=== PATIENT | female | born 2000 ===

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

== ENCOUNTER 2021-01-03 01:36 | Emergency (ER) | payer MEDICAID, SELFPAY ==
[2021-01-03 02:16] VITALS: BP 127/80; PULSE 82; RESP 16; TEMP 36.6; O2SAT 98; BMI 33.6
[2021-01-03 02:19] VITALS: BP 113/72; PULSE 73; RESP 18; TEMP 36.1; O2SAT 97; BMI 33.6
[2021-01-03 02:21] VITALS: BP 113/72; PULSE 73; RESP 18; TEMP 36.1; O2SAT 97
--- NOTE | 2021-01-03 05:25 | ED.EAR ---
HPI - Ear Problem General Chief complaint: Ear Problems Stated complaint: ear pain Time Seen by Provider: 01/03/21 05:17 Source: patient Mode of arrival: ambulatory Limitations: no limitations History of Present Illness MD Complaint: ear pain Location: left ear Duration: constant Severity: severe Relieving factors: nothing Exacerbating factors: nothing Discharge from ear: no Associated symptoms ear: external ear tenderness Treatment prior to arrival: oral analgesic Related Data Previous Rx's Medication Instructions Recorded uprdnhxw-ojbphhstp-ndmnegine 3.5 4 drp OTIC (EAR) LEFT TID 10 Days 01/03/21 mg-10,000 unit/mL-1 % ear #10 ml drops,susp Allergies Allergy/AdvReac Type Severity Reaction Status Date / Time No Known Allergies Allergy Verified 01/03/21 02:22 Review of Systems Review of Systems: Yes all other systems are reviewed and are negative [facility] Past Medical History [facility] Narrative: Past medical history: None. Past surgical history: None. Social history: She denies tobacco, alcohol and drug use. Social History Social History Alcohol intake: never Patient Tobacco Use Status: Never used Tobacco Use of substances other than those prescribed or required for medical reasons: No Advance Directives: No Advance Directives Information Provided: Yes Patient : No Physical Exam Vital Signs: Vital Signs: Last Vital Signs Temp 97 F 01/03/21 02:21 Pulse 73 01/03/21 02:21 Resp 18 01/03/21 02:21 BP 113/72 01/03/21 02:21 Pulse Ox 97 01/03/21 02:21 Body Mass Index 33.6 Const: General: cooperative, healthy appearing and no acute distress Nutritional Appearance: average body habitus Orientation/consciousness: oriented to person HENMT: Head: Yes normal to inspection Ears: TM's normal bilaterally and external ear abnormal (Left severe tenderness with palpation of tragus) General nose exam: Normal external nose present Face and sinus: Yes normal facial exam Mouth: Normal oral and palatal mucosa present Throat: Yes posterior oropharynx normal Eyes: General: appearance normal, both eyes and all related structures Neck: Neck: Yes normal visual inspection, Yes no lymphadenopathy, Yes trachea midline and Yes supple Chest: Chest palpation & inspection: normal inspection of the chest and normal palpation of entire chest wall Resp: Effort & Inspection: normal respiratory effort and able to speak in complete sentences Cardio: Rhythm: regular rhythm Heart sounds: S1 normal heart sound present, S2 normal heart sound present and no murmurs GI: Inspection: Yes normal to inspection Palpation (GI): Soft to palpation, nontender and no guarding Skin: General skin exam: no rashes or lesions noted Neuro: General: oriented to person Extrem: General: Yes normal to inspection Psych: Appearance: grossly normal Course Course Course Narrative: 20-year-old female who presents emergency department for evaluation of left ear tenderness/pain with no other symptoms, x1 day. Exam is consistent with otitis externa. Patient was given ibuprofen 600 mg orally and oxycodone 5 mg orally for her pain. Patient will be started on Cortisporin drops x1 week, she was advised to take Tylenol ibuprofen for pain. She was discharged home. Discharge Plan Discharge Clinical Impression: Otitis externa Qualifiers: Otitis externa type: unspecified type Chronicity: acute Laterality: left Qualified Code(s): H60.502 - Unspecified acute noninfective otitis externa, left ear Patient Disposition: Home, Self-Care Additional Instructions: Your findings are consistent with an external ear infection. This is treated with ear drops and not oral antibiotics. Your ear drum looks normal. Take ibuprofen 200 mg pills, 3 pills every 6 hours as needed for pain. Take Tylenol (acetaminophen) 500 mg pills, 2 pills every 4 to 6 hours as needed for pain. Follow-up with your doctor in 2 days. Please return to the emergency department if your symptoms get worse or if you develop any symptoms that are concerning to you. Prescriptions: New mchfdyld-updjbncum-JQ 3.5-10,000-1 mg/mL-unit/mL-% drops,suspension 4 drp otic (ear) left TID 10 Days Qty: 10 RF: 0
[2021-01-03] MEDS: oxyCODONE HCl Immed Release 5 MG TABLET PO (05:37)
[2021-01-03] MEDS: Ibuprofen 600 MG TABLET PO (05:37)
[2021-01-03 05:38] VITALS: BP 136/80; PULSE 72; RESP 18; TEMP 36.6; O2SAT 99
--- NOTE | 2021-01-03 05:41 | PC.NURSE ---
Pt alert and oriented x4, calm and cooperative. Pt educated on dc meds. Pt agrees to dc. No IV in place, vitals stable.
== END 2021-01-03 05:42 | disposition home or self-care (01) ==
PROVIDERS: Emergency Provider Emergency Medicine Emergency Medical Services
DX: H60.502 Unspecified acute noninfective otitis externa, left ear (principal)
CPT/HCPCS: 99283; 99284

== ENCOUNTER 2021-01-03 16:38 | Emergency (ER) | payer MEDICAID, SELFPAY ==
[2021-01-03 18:34] VITALS: BP 125/64; PULSE 89; RESP 16; TEMP 36.6; O2SAT 100; BMI 31.8
[2021-01-03 20:41] VITALS: BP 113/76; PULSE 96; RESP 18; TEMP 36.6; O2SAT 98
--- NOTE | 2021-01-03 21:18 | ED_ITS ---
HPI - Ear Problem General Chief complaint: Ear Problems Stated complaint: Earache Source: patient Mode of arrival: ambulatory Limitations: no limitations History of Present Illness HPI Narrative: Patient presents to ED for left ear pain. Patient was seen here this morning for infection and was prescribed ear drops. Patient states she only took it once and still having pain. Patient denies any headache, swelling outside of ear, fever, chills, nausea, vomiting. Patient denies any head trauma. Related Data Previous Rx's Medication Instructions Recorded vsqvrbkc-luqcfjmds-cgwpzanty 3.5 4 drp OTIC (EAR) LEFT TID 10 Days 01/03/21 mg-10,000 unit/mL-1 % ear #10 ml drops,susp Allergies Allergy/AdvReac Type Severity Reaction Status Date / Time No Known Allergies Allergy Verified 01/03/21 02:22 Review of Systems Review of Systems: Yes all other systems are reviewed and are negative Constitutional: Constitutional: Reports as per HPI and Reports no additional constitutional complaints Eyes: Eyes: Reports as per HPI and Reports no additional eye complaints ENT: Reports system reviewed and no additional complaints, except as documented, Reports as per HPI, Reports ear discharge and Reports otalgia Cardiovascular: Cardiovascular: Reports as per HPI and Reports no additional cardiovascular complaints Respiratory: Respiratory: Reports as per HPI and Reports no additional respiratory complaints Gastrointestinal: Gastrointestinal: Reports as per HPI and Reports no additional gastrointestinal complaints Musculoskeletal: Musculoskeletal: Reports no additional musculoskeletal complaints and Reports as per HPI Neurologic: Reports system reviewed and no additional complaints, except as documented and Reports as per HPI Psychiatric: Psychiatric: Reports no additional psychiatric complaints and Reports as per HPI [facility] Social History Social History Alcohol intake: never Patient Tobacco Use Status: Never used Tobacco Advance Directives: No Patient : No Physical Exam Vital Signs: Vital Signs: Last Vital Signs Temp 97.9 F 01/03/21 20:41 Pulse 96 01/03/21 20:41 Resp 18 01/03/21 20:41 BP 113/76 01/03/21 20:41 Pulse Ox 98 01/03/21 20:41 Body Mass Index 31.8 Const: General: cooperative, healthy appearing, comfortable, no acute distress, well developed, alert, awake and Physically active Orientation/consciousness: patient oriented x3 HENMT: Ears: hearing grossly normal bilaterally, external ears normal, TM's normal bilaterally, TM normal on the right, mastoids normal, no periauricular adenopathy and Abnormal EAC present otic discharge (Yellow, left ear) Eyes: General: appearance normal, both eyes and all related structures Neck: Neck: Yes normal visual inspection, Yes full ROM, Yes no lymphadenopathy, Yes no meningeal signs, Yes trachea midline, Yes supple and No tender Chest: Chest palpation & inspection: normal inspection of the chest and normal palpation of entire chest wall Resp: Effort & Inspection: normal respiratory effort and able to speak in complete sentences Cardio: Jugular venous distension: no JVD Heart sounds: S1 normal heart sound present and S2 normal heart sound present GI: Inspection: Yes normal to inspection and No abdominal wall ecchymosis Palpation (GI): Soft to palpation, not firm, nontender, no guarding and not rigid : General: No CVA tenderness and Yes no CVA tenderness Back/Spine/Pelvis: Back: no CVA tenderness, No CVA tenderness and No back tenderness Skin: General skin exam: no rashes or lesions noted and elasticity normal Neuro: General: patient oriented x3, gait normal, no meningeal signs and CN's II-XI intact bilaterally Cranial nerves: Yes CN's II-XII intact bilaterally Extrem: General: Yes normal to inspection and Yes full ROM Psych: Appearance: grossly normal, well kempt and not disheveled Course Course Course Narrative: Physical exam indicate otitis externa. His exam does not indicate osteomyelitis or mastoiditis. Patient is safe for discharge Reevaluation(s) Reevaluation #1: Mother and patient educated educated on taking proper doses and uses of medication. They were reassured. They were informed to return to ED if any signs of osteo myelitis or mastoiditis. Patient with follow-up with PCP Time: 21:23 MDM - Ear MDM Narrative Medical decision making narrative: otitis externa Discharge Plan Discharge Clinical Impression: Otitis externa Patient Disposition: Home, Self-Care Instructions: Otitis Externa (ED) Additional Instructions: Continue taking medication that was prescribed this morning by previous ED provider. Return to the ED immediately for increased swelling/pain of ear, swelling behind ear, swelling in front of ear, redness, headache, dizziness, fever, chills, or any other concerning symptoms. Patient can take Tylenol/Motrin ayyj-dvs-wonmcgf for pain relief. Please follow-up with PCP Prescriptions: No Action sjwqmxkn-cyluwtwic-NL 3.5-10,000-1 mg/mL-unit/mL-% drops,suspension 4 drp otic (ear) left TID 10 Days Qty: 10 RF: 0 Stand Alone Forms: Work/School Release Print Language: Upper Sorbian
== END 2021-01-03 21:35 | disposition home or self-care (01) ==
PROVIDERS: Emergency Provider Internal Medicine; PCP Pediatrics
DX: H60.92 Unspecified otitis externa, left ear (principal)
CPT/HCPCS: 99283

== ENCOUNTER 2021-02-23 20:57 | Emergency (ER) | payer MEDICAID, SELFPAY ==
[2021-02-23 20:59] VITALS: BP 118/61; PULSE 90; RESP 18; TEMP 36.8; O2SAT 96; BMI 33.6
--- NOTE | 2021-02-23 21:25 | ED_ITS ---
HPI - Allergic Reaction General Chief complaint: Allergic Reaction Stated complaint: Allergic reaction Time Seen by Provider: 02/23/21 21:24 Source: patient Mode of arrival: ambulatory History of Present Illness HPI narrative: This is a 20-year-old female with history of asthma who presents heart with complaints of allergic reaction in after taking her 1st dose of Bactrim that she was prescribed for UTI by her PCP approximately 1 hour prior to arrival. Patient states her symptoms started with itching skin and then progressed to having itchiness around her right eye and then feeling as though her ?throat was closing?. In addition, patient states that she has been feeling nauseous with vomiting and diarrhea since approximately to a.m. this morning. Related Data Previous Rx's Medication Instructions Recorded xkbehwvp-zrxfngksx-inmwjqkqf 3.5 4 drp OTIC (EAR) LEFT TID 10 Days 01/03/21 mg-10,000 unit/mL-1 % ear #10 ml drops,susp ciprofloxacin HCl 250 mg tablet 250 mg PO Q12H 3 Days #6 tab 02/23/21 Allergies Allergy/AdvReac Type Severity Reaction Status Date / Time sulfamethoxazole AdvReac Difficulty Verified 02/23/21 21:06 [From Bactrim] Breathing trimethoprim [From Bactrim] AdvReac Difficulty Verified 02/23/21 21:06 Breathing Review of Systems Review of Systems: Pertinent positives and negatives as stated in the HPI 10 point review of systems is otherwise negative. PMFSH Past Medical History Source: nursing notes reviewed Social History Social History Alcohol intake: unknown Patient Tobacco Use Status: Never used Tobacco Use of substances other than those prescribed or required for medical reasons: Unknown Advance Directives: No Advance Directives Information Provided: No Patient : No Physical Exam Vital Signs: Vital Signs: Last Vital Signs Temp 98.3 F 02/23/21 20:59 Pulse 89 02/23/21 22:00 Resp 15 02/23/21 22:00 BP 126/76 02/23/21 22:00 Pulse Ox 100 02/23/21 22:00 Body Mass Index 33.6 VITAL SIGNS: Reviewed. GENERAL: Well developed, well nourished, in no acute distress. HEAD: Normocephalic/atraumatic EYES: PERRLA, EOMI, no noted lid swelling there is a mild conjunctival injection on the right eye NOSE: Nares patent bilateral, rhinorrhea OROPHARYNX: no oral lesions noted, posterior pharynx clear, no lip/tongue/facial swelling noted NECK: Supple, no adenopathy LUNGS: Normal breath sounds, no wheeze, no stridor, no adventitious sounds or accessory muscle use. SpO2<96> CARDIOVASCULAR: Regular rate and rhythm without noted murmurs ABDOMEN: Soft, non-tender, non-distended with bowel sounds. SKIN: Inspection of the skin reveals no rashes noted NEUROLOGIC: Alert and oriented x 4. Course Course Course Narrative: 20-year-old female with history and clinical presentation consistent with possible mild allergic reaction as there is no urticaria, angioedema, signs of anaphylaxis at this time. Patient will receive combination of Benadryl, Pepcid, Solu-Medrol as precaution and be provided with a different antibiotic. Reevaluation(s) Reevaluation #1: Reassessment patient is feeling much better, denies any further itching or feelings of shortness of breath and denies any difficulty with breathing. On clinical exam no evidence of anaphylaxis or angioedema as well as no evidence of urticaria at this time. Time: 22:22 Reevaluation #2: On reassessment patient is still doing well and discharged home in stable condition. Time: 23:39 Discharge Plan Discharge Clinical Impression: Allergic reaction, UTI (urinary tract infection) Patient Disposition: Home, Self-Care Instructions: Urinary Tract Infection in Women (ED), General Allergic Reaction (ED) Additional Instructions: 1. Do not take any more of the antibiotic that caused this allergic reaction. 2. You have been switched to a another antibiotic in you should proceed to the pharmacy and pick it up in the morning and complete the entire course. 3. Follow-up with your primary care provider in the next 2-3 days for re- evaluation. Continue to take Benadryl as directed on the outside packaging over the next 1-2 days. Return to the ER for worsening symptoms. Prescriptions: New ciprofloxacin HCl 250 mg tablet 250 mg PO Q12H 3 Days Qty: 6 RF: 0 No Action axhchwjk-utwnhevom-MO 3.5-10,000-1 mg/mL-unit/mL-% drops,suspension 4 drp otic (ear) left TID 10 Days Qty: 10 RF: 0 Referrals: Tracey Munoz MD [Primary Care Provider] - 2 days (Patient is allergic to Bactrim and was started on 3 day course of Cipro.)
[2021-02-23 22:00] VITALS: BP 126/76; PULSE 89; RESP 15; O2SAT 100
[2021-02-23] MEDS: diphenhydrAMINE HCL 50 MG/ML VIAL 25 MG IVPUSH (22:07)
[2021-02-23] MEDS: methylPREDNISolone Sod Succ 125 MG/2 ML VIAL IVPUSH (22:07)
[2021-02-23] MEDS: Famotidine/PF 20 MG/2 ML VIAL IVPUSH (22:07)
== END 2021-02-24 00:19 | disposition home or self-care (01) ==
PROVIDERS: Emergency Provider Student in an Organized Health Care Education/Training Program; PCP Pediatrics
DX: R21 Rash and other nonspecific skin eruption (principal); T36.8X5A Adverse effect of other systemic antibiotics, initial encounter; X58.XXXA Exposure to other specified factors, initial encounter; N39.0 Urinary tract infection, site not specified
CPT/HCPCS: 96374; 96375; 99284; 99285; J1200; J2930

== ENCOUNTER 2021-04-06 13:18 | Outpatient (REF) | payer MEDICAID, SELFPAY ==
[2021-04-06 14:57] LABS: Binax Internal Control QC Valid; Binax Now Covid-19 Ag Negative (Negative)
== END 2021-04-06 13:19 | disposition home or self-care (01) ==
LOC: HO.LAB 13:18
PROVIDERS: Visit Provider Internal Medicine
DX: Z20.822 Contact with and (suspected) exposure to COVID-19 (principal)
CPT/HCPCS: 36415; C9803

== ENCOUNTER 2021-07-03 02:02 | Emergency (ER) | payer MEDICAID, SELFPAY ==
[2021-07-03 03:05] VITALS: BP 119/81; PULSE 75; RESP 18; TEMP 36.6; O2SAT 100; BMI 33.6
== END 2021-07-03 04:54 | disposition left against medical advice (07) ==
PROVIDERS: Emergency Provider Emergency Medicine
DX: R51.9 Headache, unspecified (principal)
CPT/HCPCS: 99281; 99282

== ENCOUNTER 2022-05-18 17:51 | Emergency (ER) | payer MEDICAID, SELFPAY ==
--- NOTE | ~2022-05-18 | XR_ITS ---
EXAMINATION: XR CHEST CLINICAL INFORMATION: Chest pain COMPARISON: 11/12/2017 TECHNIQUE: 2 views of the chest were obtained. FINDINGS: Moderate scoliosis convex right. No significant abnormality is noted involving the heart, lungs, mediastinum, bony thorax or soft tissues. XR/XR chest 2V IMPRESSION: Unremarkable examination.
[2022-05-18 17:55] VITALS: BP 130/77; PULSE 76; RESP 18; TEMP 36.7; O2SAT 99; BMI 31.8
--- NOTE | 2022-05-18 17:57 | ED_ITS ---
HPI - Chest Pain General Chief Complaint: Chest Pain <Marlen Raphael NP - Last Filed: 05/18/22 17:58> Stated Complaint: Chest pain <Marlen Raphael NP - Last Filed: 05/18/22 17:58> Time Seen by Provider: 05/18/22 18:09 <Marlen Raphael NP - Last Filed: 05/18/22 17:58> Source: patient and family <Kelvin Rodrigez MD - Last Filed: 05/18/22 20:47> Mode of arrival: ambulatory <Kelvin Rodrigez MD - Last Filed: 05/18/22 20:47> Limitations: no limitations <Kelvin Rodrigez MD - Last Filed: 05/18/22 20:47> History of Present Illness HPI narrative: 21-year-old female came in for evaluation of mid chest pain for the past few days. Patient with past medical history of seizure and scoliosis, pain is localized to the mid chest occasionally radiates to the left arm feels like palpitation and pressure in her chest it is intermittent. No shortness of breath. patient stated that she has been going through stress in her family just lost a family member and feel sad, no recent travel, no recent prolonged immobilization, no lower extremity swelling or tenderness. No history of hypertension, diabetes, no smoking history. No family history of young age of her young age mi. <Kelvin Rodrigez MD - Last Filed: 05/18/22 20:47> Related Data Home Medications: Previous Rx's Medication Instructions Recorded vvnsvinx-ctwzthgwd-zoqdabeqq 3.5 4 drp otic (ear) left TID 10 days 01/03/21 mg-10,000 unit/mL-1 % ear #10 mL drops,susp ciprofloxacin HCl 250 mg tablet 250 mg PO Q12H 3 days #6 tabs 02/23/21 <Marlen Raphael NP - Last Filed: 05/18/22 17:58> Allergies/Adverse Reactions: Allergies Allergy/AdvReac Type Severity Reaction Status Date / Time sulfamethoxazole AdvReac Difficulty Verified 02/23/21 21:06 [From Bactrim] Breathing trimethoprim [From Bactrim] AdvReac Difficulty Verified 02/23/21 21:06 Breathing <Marlen Raphael NP - Last Filed: 05/18/22 17:58> Review of Systems Review of Systems: All other systems are reviewed and are negative Constitutional: Reports as per HPI and Reports no additional constitutional complaints Eyes: Reports as per HPI and Reports no additional eye complaints Reports system reviewed and no additional complaints, except as documented Cardiovascular: Reports as per HPI and Reports no additional cardiovascular complaints Respiratory: Reports as per HPI and Reports no additional respiratory complaints Gastrointestinal: Reports as per HPI and Reports no additional gastrointestinal complaints Genitourinary: Reports no additional female genitourinary complaints Musculoskeletal: Reports no additional musculoskeletal complaints Skin/Breast: Reports system reviewed and no additional complaints, except as docu Psychiatric: Reports no additional psychiatric complaints Endocrine: Reports no additional endocrine complaints Hematologic/Lymphatic: Reports no additional hematologic/lymphatic complaints Allergic/Immunologic: Reports no additional allergic/immunologic complaints Reports system reviewed and no additional complaints, except as documented and Reports Abnormal speech present <Kelvin Rodrigez MD - Last Filed: 05/18/22 20:47> [facility] Social History Social History: Social History Alcohol intake: unknown Patient Tobacco Use Status: Never used Tobacco Advance Directives: No Advance Directives Information Provided: No <Marlen Raphael NP - Last Filed: 05/18/22 17:58> Physical Exam Vital Signs: Vital Signs: Last Vital Signs Temp 99.1 F 05/18/22 20:31 Pulse 89 05/18/22 20:31 Resp 16 05/18/22 20:31 BP 139/67 05/18/22 20:31 Pulse Ox 98 05/18/22 20:31 O2 Del Method 05/18/22 20:31 BMI result Body Mass Index 31.8 <Marlen Raphael NP - Last Filed: 05/18/22 17:58> Vital Signs: Last Vital Signs Temp 99.1 F 05/18/22 20:31 Pulse 89 05/18/22 20:31 Resp 16 05/18/22 20:31 BP 139/67 05/18/22 20:31 Pulse Ox 98 05/18/22 20:31 O2 Del Method 05/18/22 20:31 BMI result Body Mass Index 31.8 Vital signs have been reviewed as appeared to be correct. Blood pressure normal. Heart rate normal. Respiration rate normal. Temperature normal. Oxygen saturation normal. <Kelvin Rodrigez MD - Last Filed: 05/18/22 20:47> Appearance: Alert. Oriented X3. No acute distress. Head: Normal external exam. Normocephalic. Atraumatic. No Rush signs noted. No raccoon eyes noted Eyes: PERRLA. EOMI. Conjunctiva and sclera normal. Eyelids normal. ENT: TM's Normal. Pharynx normal. Uvula midline. Moist mucous membranes. No trismus noted. No drooling noted. No muffled voice noted. Neck: Normal inspection. Neck supple. FROM. No adenopathy. Thyroid Normal. No meningeal signs. No neck mass noted. CVS: Normal heart rate and rhythm. Heart sound normal. No murmurs noted. Pulses normal throughout. Respiratory: No respiratory distress. Painless inspiration. Breath sounds normal. No wheezes/rales/rhonchi noted. Chest nontender. No accessory muscle usage noted or decreased air movement noted. Abdomen: Soft and nontender. Bowel sounds normal in all 4 quadrants. No distention noted. No organomegaly noted. No visible injury noted. Back: No CVA tenderness. Full range of motion noted. Skin: Skin warm and dry. Normal skin color. Normal skin turgor. No rashes /lesions/lacerations noted. Extremities: No lower extremity edema. Extremities exhibit normal range of motion. Extremities nontender. Neuro: Oriented X 3. Cranial nerve exam: II-XII are grossly intact No motor deficit. No sensory deficit. Reflexes normal. <Kelvin Rodrigez MD - Last Filed: 05/18/22 20:47> Course Course Course Narrative: This is a rapid medical exam. deferred additional HPI, ROS, PE to primary provider. 21yo female w/ asthma, scoliosis here with chest burning feeling short of breath, palpitations very anxious today with increased stress at home. Will obtain EKG, CXR, viral testing. VSS <Marlen Raphael NP - Last Filed: 05/18/22 17:58> Reevaluation(s) Reevaluation #1: Patient with HEART score of 1, D-dimer is unremarkable with absence of risk factor for DVT or PE, unremarkable chest x-ray and EKG chest pain is more likely related to stress reaction. Also discussed with the patient the abnormal elevation of LFTs which is likely due to fatty infiltration of the liver patient was instructed to follow-up with her PCP. <Kelvin Rodrigez MD - Last Filed: 05/18/22 20:47> Time: 20:43 <Kelvin Rodrigez MD - Last Filed: 05/18/22 20:47> Medical Decision Making Differential Diagnosis Differential Diagnoses: The differential diagnosis associated with the presentation includes (ACS, pulmonary embolism, chest wall contusion, rib fracture, pneumothorax, costochondritis, pneumonia, stress/anxiety reaction.) <Kelvin Rodrigez MD - Last Filed: 05/18/22 20:47> Lab Data MDM Lab Attestation statement: I reviewed the patient's lab results. <Kelvin Rodrigez MD - Last Filed: 05/18/22 20:47> Result Diagrams: 05/18/22 18:21 05/18/22 18:21 <Marlen Raphael NP - Last Filed: 05/18/22 17:58> Labs: Lab Results 05/18/22 05/18/22 05/18/22 Range/Units 18:18 18:21 18:21 WBC 12.6 H (4.8-10.8) X10*3/uL RBC 4.99 (4.20-5.50) X10*6/uL Hgb 13.2 (12.0-16.0) g/dl Hct 42.2 (37.0-47.0) % MCV 84.6 (80.0-98.0) fL MCH 26.5 L (27.0-33.0) pg MCHC 31.3 (31.0-35.0) g/dl RDW 12.7 (11.0-16.0) % Plt Count 336 (160-400) X10*3/uL MPV 9.8 (9.4-12.3) fL Immature Gran % (Auto) 0.3 (0.0-0.4) % Neut % (Auto) 75.7 H (45-73) % Lymph % (Auto) 17.8 L (20-40) % [place] % (Auto) 4.8 (2-11) % Eos % (Auto) 0.8 (0-4) % Baso % (Auto) 0.6 (0-2) % Lymph # (Auto) 2.3 (1.2-4.9) X10*3/uL [place] # (Auto) 0.6 (0.1-1.2) X10*3/uL Eos # (Auto) 0.1 (0.0-0.4) X10*3/uL Baso # (Auto) 0.1 (0.0-0.2) X10*3/uL Abs Immat Gran (auto) 0.04 H (0.00-0.03) X10*3/uL Absolute Neuts (auto) 9.6 H (2.0-8.3) x10*3/uL Absolute Nucleated RBC 0.000 (0.0-0.012) X10*3/uL Nucleated RBC % (auto) 0.0 (0.0-0.2) /100WBC D-Dimer High Sensitivty < 150 NG/ML Sodium (135-145) mmol/L Potassium (3.3-5.1) mmol/L Chloride (96-108) mmol/L Carbon Dioxide (22-29) mmol/L Anion Gap (12-20) BUN (9-16) mg/dL Creatinine (0.5-1.4) mg/dL Estim Creat Clear Calc Estimated GFR Random Glucose (60-115) mg/dL Calcium (8.4-10.2) mg/dL Total Bilirubin (0.0-1.0) mg/dL Direct Bilirubin (0.0-0.5) mg/dL AST (5-31) U/L ALT (0-31) U/L Alkaline Phosphatase (39-117) U/L Troponin I High Sens (<3.5-17.0) ng/L Total Protein (6.5-8.0) g/dL Albumin (3.5-5.0) g/dL Lipase (8-78) U/L Influenza Type A (PCR) NEGATIVE (Negative) Influenza Type B (PCR) NEGATIVE (Negative) RSV RNA Qual (PCR) NEGATIVE (Negative) SARS-CoV-2 RNA (RT-PCR) NEGATIVE (Negative) 05/18/22 05/18/22 Range/Units 18:21 18:21 WBC (4.8-10.8) X10*3/uL RBC (4.20-5.50) X10*6/uL Hgb (12.0-16.0) g/dl Hct (37.0-47.0) % MCV (80.0-98.0) fL MCH (27.0-33.0) pg MCHC (31.0-35.0) g/dl RDW (11.0-16.0) % Plt Count (160-400) X10*3/uL MPV (9.4-12.3) fL Immature Gran % (Auto) (0.0-0.4) % Neut % (Auto) (45-73) % Lymph % (Auto) (20-40) % [place] % (Auto) (2-11) % Eos % (Auto) (0-4) % Baso % (Auto) (0-2) % Lymph # (Auto) (1.2-4.9) X10*3/uL [place] # (Auto) (0.1-1.2) X10*3/uL Eos # (Auto) (0.0-0.4) X10*3/uL Baso # (Auto) (0.0-0.2) X10*3/uL Abs Immat Gran (auto) (0.00-0.03) X10*3/uL Absolute Neuts (auto) (2.0-8.3) x10*3/uL Absolute Nucleated RBC (0.0-0.012) X10*3/uL Nucleated RBC % (auto) (0.0-0.2) /100WBC D-Dimer High Sensitivty NG/ML Sodium 139 (135-145) mmol/L Potassium 4.2 (3.3-5.1) mmol/L Chloride 104 (96-108) mmol/L Carbon Dioxide 24 (22-29) mmol/L Anion Gap 15 (12-20) BUN 12 (9-16) mg/dL Creatinine 0.84 (0.5-1.4) mg/dL Estim Creat Clear Calc 108.0 Estimated GFR > 60 Random Glucose 105 (60-115) mg/dL Calcium 9.6 (8.4-10.2) mg/dL Total Bilirubin 0.3 (0.0-1.0) mg/dL Direct Bilirubin < 0.2 (0.0-0.5) mg/dL AST 39 H (5-31) U/L ALT 79 H (0-31) U/L Alkaline Phosphatase 69 (39-117) U/L Troponin I High Sens < 3.5 (<3.5-17.0) ng/L Total Protein 8.1 H (6.5-8.0) g/dL Albumin 4.9 (3.5-5.0) g/dL Lipase 10 (8-78) U/L Influenza Type A (PCR) (Negative) Influenza Type B (PCR) (Negative) RSV RNA Qual (PCR) (Negative) SARS-CoV-2 RNA (RT-PCR) (Negative) <Marlen Raphael [employer] - Last Filed: 05/18/22 17:58> Lab Results 05/18/22 05/18/22 05/18/22 Range/Units 18:18 18:21 18:21 WBC 12.6 H (4.8-10.8) X10*3/uL RBC 4.99 (4.20-5.50) X10*6/uL Hgb 13.2 (12.0-16.0) g/dl Hct 42.2 (37.0-47.0) % MCV 84.6 (80.0-98.0) fL MCH 26.5 L (27.0-33.0) pg MCHC 31.3 (31.0-35.0) g/dl RDW 12.7 (11.0-16.0) % Plt Count 336 (160-400) X10*3/uL MPV 9.8 (9.4-12.3) fL Immature Gran % (Auto) 0.3 (0.0-0.4) % Neut % (Auto) 75.7 H (45-73) % Lymph % (Auto) 17.8 L (20-40) % [place] % (Auto) 4.8 (2-11) % Eos % (Auto) 0.8 (0-4) % Baso % (Auto) 0.6 (0-2) % Lymph # (Auto) 2.3 (1.2-4.9) X10*3/uL [place] # (Auto) 0.6 (0.1-1.2) X10*3/uL Eos # (Auto) 0.1 (0.0-0.4) X10*3/uL Baso # (Auto) 0.1 (0.0-0.2) X10*3/uL Abs Immat Gran (auto) 0.04 H (0.00-0.03) X10*3/uL Absolute Neuts (auto) 9.6 H (2.0-8.3) x10*3/uL Absolute Nucleated RBC 0.000 (0.0-0.012) X10*3/uL Nucleated RBC % (auto) 0.0 (0.0-0.2) /100WBC D-Dimer High Sensitivty < 150 NG/ML Sodium (135-145) mmol/L Potassium (3.3-5.1) mmol/L Chloride (96-108) mmol/L Carbon Dioxide (22-29) mmol/L Anion Gap (12-20) BUN (9-16) mg/dL Creatinine (0.5-1.4) mg/dL Estim Creat Clear Calc Estimated GFR Random Glucose (60-115) mg/dL Calcium (8.4-10.2) mg/dL Total Bilirubin (0.0-1.0) mg/dL Direct Bilirubin (0.0-0.5) mg/dL AST (5-31) U/L ALT (0-31) U/L Alkaline Phosphatase (39-117) U/L Troponin I High Sens (<3.5-17.0) ng/L Total Protein (6.5-8.0) g/dL Albumin (3.5-5.0) g/dL Lipase (8-78) U/L Influenza Type A (PCR) NEGATIVE (Negative) Influenza Type B (PCR) NEGATIVE (Negative) RSV RNA Qual (PCR) NEGATIVE (Negative) SARS-CoV-2 RNA (RT-PCR) NEGATIVE (Negative) 05/18/22 05/18/22 Range/Units 18:21 18:21 WBC (4.8-10.8) X10*3/uL RBC (4.20-5.50) X10*6/uL Hgb (12.0-16.0) g/dl Hct (37.0-47.0) % MCV (80.0-98.0) fL MCH (27.0-33.0) pg MCHC (31.0-35.0) g/dl RDW (11.0-16.0) % Plt Count (160-400) X10*3/uL MPV (9.4-12.3) fL Immature Gran % (Auto) (0.0-0.4) % Neut % (Auto) (45-73) % Lymph % (Auto) (20-40) % [place] % (Auto) (2-11) % Eos % (Auto) (0-4) % Baso % (Auto) (0-2) % Lymph # (Auto) (1.2-4.9) X10*3/uL [place] # (Auto) (0.1-1.2) X10*3/uL Eos # (Auto) (0.0-0.4) X10*3/uL Baso # (Auto) (0.0-0.2) X10*3/uL Abs Immat Gran (auto) (0.00-0.03) X10*3/uL Absolute Neuts (auto) (2.0-8.3) x10*3/uL Absolute Nucleated RBC (0.0-0.012) X10*3/uL Nucleated RBC % (auto) (0.0-0.2) /100WBC D-Dimer High Sensitivty NG/ML Sodium 139 (135-145) mmol/L Potassium 4.2 (3.3-5.1) mmol/L Chloride 104 (96-108) mmol/L Carbon Dioxide 24 (22-29) mmol/L Anion Gap 15 (12-20) BUN 12 (9-16) mg/dL Creatinine 0.84 (0.5-1.4) mg/dL Estim Creat Clear Calc 108.0 Estimated GFR > 60 Random Glucose 105 (60-115) mg/dL Calcium 9.6 (8.4-10.2) mg/dL Total Bilirubin 0.3 (0.0-1.0) mg/dL Direct Bilirubin < 0.2 (0.0-0.5) mg/dL AST 39 H (5-31) U/L ALT 79 H (0-31) U/L Alkaline Phosphatase 69 (39-117) U/L Troponin I High Sens < 3.5 (<3.5-17.0) ng/L Total Protein 8.1 H (6.5-8.0) g/dL Albumin 4.9 (3.5-5.0) g/dL Lipase 10 (8-78) U/L Influenza Type A (PCR) (Negative) Influenza Type B (PCR) (Negative) RSV RNA Qual (PCR) (Negative) SARS-CoV-2 RNA (RT-PCR) (Negative) <Kelvin Rodrigez MD - Last Filed: 05/18/22 20:47> Independent Interpretation I performed an independent interpretation of an: EKG (Normal sinus rhythm at 95 beats per minute, normal intervals, normal axis deviation, T-wave inversion in lead III and AVF) and Plain X-Ray (No acute intrathoracic pathology.) <Kelvin Rodrigez MD - Last Filed: 05/18/22 20:47> Radiology Impression Discussion of test interpretation with radiology: I have reviewed the radiologist's reading. <Kelvin Rodrigez MD - Last Filed: 05/18/22 20:47> Discharge Plan Discharge Clinical Impression: Atypical chest pain, Anxiety, Elevated liver function tests <Marlen Raphael NP - Last Filed: 05/18/22 17:58> Patient Disposition: Home, Self-Care <Marlen Raphael NP - Last Filed: 05/18/22 17:58> Instructions: Anxiety (ED) <Marlen Raphael NP - Last Filed: 05/18/22 17:58> Prescriptions: No Action [id number]-nnozwuedb-[place] 3.5-10,000-1 mg/mL-unit/mL-% drops,suspension 4 drp otic (ear) left TID 10 Days Qty: 10 0RF ciprofloxacin HCl 250 mg tablet 250 mg PO Q12H 3 Days Qty: 6 0RF <Marlen Raphael NP - Last Filed: 05/18/22 17:58> Referrals: Physician,None [Primary Care Provider] - <Marlen Raphael NP - Last Filed: 05/18/22 17:58>
--- NOTE | 2022-05-18 17:57 | ECG_ITS ---
Test Reason : chest pain Blood Pressure : / mmHG Vent. Rate : 095 BPM Atrial Rate : 095 BPM P-R Int : 160 ms QRS Dur : 086 ms QT Int : 326 ms P-R-T Axes : 050 040 008 degrees QTc Int : 409 ms Normal sinus rhythm Nonspecific T wave abnormality Abnormal ECG No previous ECGs available Referred By: Marlen Raphael Electronically Signed By:Louis Bassett
[2022-05-18 18:25] LABS: MANUAL DIFF FLAG NO
[2022-05-18 18:30] LABS: Basophils Absolute Auto 0.1 X10*3/uL (0.0-0.2); Basophils Percent Auto 0.6 % (0-2); Eosinophils Absolute Auto 0.1 X10*3/uL (0.0-0.4); Eosinophils Percent Auto 0.8 % (0-4); Hematocrit 42.2 % (37.0-47.0); Hemoglobin 13.2 g/dl (12.0-16.0); Imm Gran Abs Auto 0.04 X10*3/uL (0.00-0.03); Imm Gran Pct Auto 0.3 % (0.0-0.4); Lymphocytes Absolute Auto 2.3 X10*3/uL (1.2-4.9); Lymphocytes Percent Auto 17.8 % (20-40); Mean Corpuscular HGB Conc 31.3 g/dl (31.0-35.0); Mean Corpuscular Hemoglobin 26.5 pg (27.0-33.0); Mean Corpuscular Volume 84.6 fL (80.0-98.0); Mean Platelet Volume 9.8 fL (9.4-12.3); Monocytes Absolute Auto 0.6 X10*3/uL (0.1-1.2); Monocytes Percent Auto 4.8 % (2-11); Neutrophils Absolute Auto 9.6 x10*3/uL (2.0-8.3); Neutrophils Percent Auto 75.7 % (45-73); Platelet Count 336 X10*3/uL (160-400); Red Blood Count 4.99 X10*6/uL (4.20-5.50); Red Cell Distribution Width 12.7 % (11.0-16.0); White Blood Count 12.6 X10*3/uL (4.8-10.8)
[2022-05-18 18:42] LABS: D Dimer High Sensitivity < 150 NG/ML
[2022-05-18 18:44] LABS: Alanine Aminotransferase 79 U/L (0-31); Albumin Level 4.9 g/dL (3.5-5.0); Alkaline Phosphatase 69 U/L (39-117); Anion Gap 15 (12-20); Aspartate Amino Transferase 39 U/L (5-31); Bilirubin Direct < 0.2 mg/dL (0.0-0.5); Bilirubin Total 0.3 mg/dL (0.0-1.0); Blood Urea Nitrogen 12 mg/dL (9-16); Calcium 9.6 mg/dL (8.4-10.2); Carbon Dioxide 24 mmol/L (22-29); Chloride 104 mmol/L (96-108); Estimated Glomerular Filt Rate > 60; Glucose Random 105 mg/dL (60-115); Lipase 10 U/L (8-78); Potassium 4.2 mmol/L (3.3-5.1); Sodium 139 mmol/L (135-145); Total Protein 8.1 g/dL (6.5-8.0)
[2022-05-18 18:51] LABS: Troponin-I High Sensitivity < 3.5 ng/L (<3.5-17.0)
[2022-05-18 19:06] LABS: Influenza A PCR NEGATIVE (Negative); Influenza B PCR NEGATIVE (Negative); Resp Syncy Virus RNA Qual PCR NEGATIVE (Negative); SARS COV2 PCR INHOUSE NEGATIVE (Negative)
[2022-05-18 20:31] VITALS: BP 139/67; PULSE 89; RESP 16; TEMP 37.3; O2SAT 98
== END 2022-05-18 20:57 | disposition home or self-care (01) ==
PROVIDERS: Nurse Practitioner Family; Emergency Provider Emergency Medicine
DX: R07.89 Other chest pain (principal); F41.9 Anxiety disorder, unspecified; R79.89 Other specified abnormal findings of blood chemistry; Z20.822 Contact with and (suspected) exposure to COVID-19; Z20.828 Contact with and (suspected) exposure to other viral communicable diseases; Z79.899 Other long term (current) drug therapy
CPT/HCPCS: 0241U; 36415; 71046; 80048; 80076; 83690; 84484; 85025; 85379; 93005; 99283; 99284

== ENCOUNTER 2022-08-17 19:26 | Emergency (ER) | payer MEDICAID, SELFPAY ==
--- NOTE | 2022-08-17 19:29 | ED.GENADULT ---
HPI - General Adult General Chief complaint: Allergic Reaction Stated complaint: Allergic reaction to antibiotic Time Seen by Provider: 08/17/22 20:12 Source: patient Mode of arrival: ambulatory Limitations: no limitations History of Present Illness HPI narrative: Patient with urinary symptoms for 3 days started on Bactrim by urgent care earlier today within 3 hours of taking medication patient felt itching all over the body and throat tightness and lips tingling no tongue swelling no shortness of breath. Patient had history of similar allergic reaction to antibiotic was not sure at that time what antibiotic Related Data Previous Rx's Medication Instructions Recorded dfbjkqlg-afiqjjbzb-rggbrcsfx 3.5 4 drp otic (ear) left TID 10 days 01/03/21 mg-10,000 unit/mL-1 % ear #10 mL drops,susp ciprofloxacin HCl 250 mg tablet 250 mg PO Q12H 3 days #6 tabs 02/23/21 cefuroxime axetil 250 mg tablet 250 mg PO BID 7 days #14 tabs 08/17/22 diphenhydramine HCl 25 mg capsule 50 mg PO TID PRN allergic reaction 08/17/22 (Benadryl) #30 caps Allergies Allergy/AdvReac Type Severity Reaction Status Date / Time sulfamethoxazole AdvReac Intermediate Difficulty Verified 08/17/22 19:30 [From Bactrim] Breathing trimethoprim [From Bactrim] AdvReac Intermediate Difficulty Verified 08/17/22 19:30 Breathing Review of Systems Review of Systems: Yes all other systems are reviewed and are negative [facility] Social History Social History Alcohol intake: unknown Patient Tobacco Use Status: Never used Tobacco Advance Directives: No Advance Directives Information Provided: Yes Physical Exam ED Vital Signs: Vital Signs - 24 hr 08/17/22 19:31 08/17/22 20:04 08/17/22 21:52 Temperature 98.0 F 98.2 F Pulse Rate 93 93 84 Respiratory Rate 18 15 17 Blood Pressure 130/80 115/72 123/65 Pulse Oximetry 98 97 96 Oxygen Delivery Method Room Air Room Air Room Air 08/17/22 23:24 Temperature 98.4 F Pulse Rate 92 Respiratory Rate 16 Blood Pressure 111/56 L Pulse Oximetry 96 Oxygen Delivery Method Room Air BMI result Body Mass Index 35.7 Appearance: Alert. Oriented X3. No acute distress. Eyes: PERRLA, No Nystagmus ENT: Pharynx normal. Oral Mucosa moist lips normal uvula normal tongue normal Neck: Normal inspection. Neck supple. CVS: Normal heart rate and rhythm. Pulses normal. Respiratory: No respiratory distress. Equal air entry bilateral, no wheezing/rales/rhonchi Abdomen: Soft and nontender. Bowel sounds are present, no mass palpable, no CVA tenderness Skin: Skin warm and dry. Normal skin color. Normal skin turgor slight erythematous rash no hives noticed. Extremities: No lower extremity edema. No calf tenderness Neuro: Oriented X 3. No motor deficit. Course Course Course Narrative: RME performed by Rachele Cooper PA-C. Patient is a 21 year old assigned female at presenting to the emergency department with a possible allergic reaction to antibiotics given. Labs ordered. Patient placed back in the waiting room pending room availability and results. Medications Administered Discontinued Medications Generic Name Dose Route Start Last Admin Trade Name Freq PRN Reason Stop Dose Admin Cefuroxime Axetil 250 mg 08/17/22 23:28 08/17/22 23:44 Cefuroxime Axetil 250 Mg Tablet PO 08/17/22 23:29 250 mg ONCE ONE Administration Diphenhydramine HCl 50 mg 08/17/22 20:14 08/17/22 20:21 Diphenhydramine Hcl 50 Mg/Ml Vial IVPUSH 08/17/22 20:15 50 mg ONCE ONE Administration Famotidine 20 mg 08/17/22 20:14 08/17/22 20:21 Famotidine/Pf 20 Mg/2 Ml Vial IVPUSH 08/17/22 20:15 20 mg ONCE ONE Administration Methylprednisolone Sodium Succinate 125 mg 08/17/22 20:14 08/17/22 20:21 Methylprednisolone Sod Succ 125 Mg/2 Ml Vial IVPUSH 08/17/22 20:15 125 mg ONCE ONE Administration Medical Decision Making Medical Decision Making MDM Narrative: Patient likely indication to sulfa improved after Benadryl and Solu-Medrol discharge patient home on Benadryl please start patient on Ceftin for UTI Lab Data 08/17/22 20:11 08/17/22 20:11 Labs: Lab Results 08/17/22 08/17/22 Range/Units 20:11 20:11 WBC 12.0 H (4.8-10.8) X10*3/uL RBC 4.90 (4.20-5.50) X10*6/uL Hgb 13.1 (12.0-16.0) g/dl Hct 40.9 (37.0-47.0) % MCV 83.5 (80.0-98.0) fL MCH 26.7 L (27.0-33.0) pg MCHC 32.0 (31.0-35.0) g/dl RDW 12.9 (11.0-16.0) % Plt Count 328 (160-400) X10*3/uL MPV 10.1 (9.4-12.3) fL Immature Gran % (Auto) 0.5 H (0.0-0.4) % Neut % (Auto) 55.5 (45-73) % Lymph % (Auto) 34.6 (20-40) % [place] % (Auto) 6.3 (2-11) % Eos % (Auto) 2.5 (0-4) % Baso % (Auto) 0.6 (0-2) % Lymph # (Auto) 4.2 (1.2-4.9) X10*3/uL [place] # (Auto) 0.8 (0.1-1.2) X10*3/uL Eos # (Auto) 0.3 (0.0-0.4) X10*3/uL Baso # (Auto) 0.1 (0.0-0.2) X10*3/uL Abs Immat Gran (auto) 0.06 H (0.00-0.03) X10*3/uL Absolute Neuts (auto) 6.7 (2.0-8.3) x10*3/uL Absolute Nucleated RBC 0.000 (0.0-0.012) X10*3/uL Nucleated RBC % (auto) 0.0 (0.0-0.2) /100WBC Sodium 139 (135-145) mmol/L Potassium 3.9 (3.3-5.1) mmol/L Chloride 103 (96-108) mmol/L Carbon Dioxide 27 (22-29) mmol/L Anion Gap 13 (12-20) BUN 9 (9-16) mg/dL Creatinine 0.83 (0.5-1.4) mg/dL Estim Creat Clear Calc 116.1 Estimated GFR > 60 Random Glucose 106 (60-115) mg/dL Calcium 9.5 (8.4-10.2) mg/dL Magnesium 2.0 (1.6-2.6) mg/dL Total Bilirubin 0.3 (0.0-1.0) mg/dL AST 24 (5-31) U/L ALT 50 H (0-31) U/L Alkaline Phosphatase 63 (39-117) U/L Total Protein 7.4 (6.5-8.0) g/dL Albumin 4.5 (3.5-5.0) g/dL Discharge Plan Discharge Clinical Impression: Allergic reaction Patient Disposition: Home, Self-Care Instructions: Antibiotic Medication Allergy (ED) Additional Instructions: Stop taking Bactrim as your allergic to sulfa Start taking Ceftin for urinary tract infection Drink plenty of fluids Prescriptions: New cefuroxime axetil 250 mg tablet 250 mg PO BID 7 Days Qty: 14 0RF diphenhydramine HCl [Benadryl] 25 mg capsule 50 mg PO TID PRN (Reason: allergic reaction) Qty: 30 0RF No Action [id number]-vblocczei-NU 3.5-10,000-1 mg/mL-unit/mL-% drops,suspension 4 drp otic (ear) left TID 10 Days Qty: 10 0RF ciprofloxacin HCl 250 mg tablet 250 mg PO Q12H 3 Days Qty: 6 0RF Interventions: ED Discharge Assessment Last Done: 08/17/22 23:49 Discharge Date/Time: 08/17/22 23:50
[2022-08-17 19:31] VITALS: BP 130/80; PULSE 93; RESP 18; TEMP 36.7; O2SAT 98; BMI 35.7
[2022-08-17 20:04] VITALS: BP 115/72; PULSE 93; RESP 15; O2SAT 97
[2022-08-17 20:16] LABS: MANUAL DIFF FLAG NO
[2022-08-17 20:21] LABS: Basophils Absolute Auto 0.1 X10*3/uL (0.0-0.2); Basophils Percent Auto 0.6 % (0-2); Eosinophils Absolute Auto 0.3 X10*3/uL (0.0-0.4); Eosinophils Percent Auto 2.5 % (0-4); Hematocrit 40.9 % (37.0-47.0); Hemoglobin 13.1 g/dl (12.0-16.0); Imm Gran Abs Auto 0.06 X10*3/uL (0.00-0.03); Imm Gran Pct Auto 0.5 % (0.0-0.4); Lymphocytes Absolute Auto 4.2 X10*3/uL (1.2-4.9); Lymphocytes Percent Auto 34.6 % (20-40); Mean Corpuscular Hemoglobin 26.7 pg (27.0-33.0); Mean Corpuscular Volume 83.5 fL (80.0-98.0); Mean Platelet Volume 10.1 fL (9.4-12.3); Monocytes Absolute Auto 0.8 X10*3/uL (0.1-1.2); Monocytes Percent Auto 6.3 % (2-11); Neutrophils Absolute Auto 6.7 x10*3/uL (2.0-8.3); Neutrophils Percent Auto 55.5 % (45-73); Platelet Count 328 X10*3/uL (160-400); Red Cell Distribution Width 12.9 % (11.0-16.0)
[2022-08-17] MEDS: diphenhydrAMINE HCL 50 MG/ML VIAL IVPUSH (20:21)
[2022-08-17] MEDS: Famotidine/PF 20 MG/2 ML VIAL IVPUSH (20:21)
[2022-08-17] MEDS: methylPREDNISolone Sod Succ 125 MG/2 ML VIAL IVPUSH (20:21)
[2022-08-17 20:32] LABS: Alanine Aminotransferase 50 U/L (0-31); Albumin Level 4.5 g/dL (3.5-5.0); Alkaline Phosphatase 63 U/L (39-117); Anion Gap 13 (12-20); Aspartate Amino Transferase 24 U/L (5-31); Bilirubin Total 0.3 mg/dL (0.0-1.0); Blood Urea Nitrogen 9 mg/dL (9-16); Calcium 9.5 mg/dL (8.4-10.2); Carbon Dioxide 27 mmol/L (22-29); Chloride 103 mmol/L (96-108); Creatinine Clr Calc Pharmacy 116.1; Estimated Glomerular Filt Rate > 60; Glucose Random 106 mg/dL (60-115); Potassium 3.9 mmol/L (3.3-5.1); Sodium 139 mmol/L (135-145); Total Protein 7.4 g/dL (6.5-8.0)
--- NOTE | 2022-08-17 21:20 | PC.NURSE ---
late entry: pt brought in from waiting room, pt reports increasing SOB with throat itchiness. Upon exam, lung sounds clear and throat does not appear swollen. 20g IV placed in LAC and labs drawn
--- NOTE | 2022-08-17 21:21 | PC.NURSE ---
pt reports feeling better and denies SOB/ throat itchiness
[2022-08-17 21:52] VITALS: BP 123/65; PULSE 84; RESP 17; TEMP 36.8; O2SAT 96
[2022-08-17 23:24] VITALS: BP 111/56; PULSE 92; RESP 16; TEMP 36.9; O2SAT 96
== END 2022-08-17 23:50 | disposition home or self-care (01) ==
PROVIDERS: Physician Assistant Medical; Emergency Provider Internal Medicine
DX: R21 Rash and other nonspecific skin eruption (principal); T78.40XA Allergy, unspecified, initial encounter; X58.XXXA Exposure to other specified factors, initial encounter
CPT/HCPCS: 36415; 80053; 83735; 85025; 96374; 96375; 99284; J1200; J2930

== ENCOUNTER 2023-01-06 05:18 | Emergency (ER) | payer MEDICAID, SELFPAY ==
[2023-01-06 05:34] VITALS: BP 139/74; PULSE 101; RESP 16; TEMP 37.2; O2SAT 98; BMI 33.7
[2023-01-06 06:14] LABS: Alanine Aminotransferase 39 U/L (0-31); Albumin Level 4.6 g/dL (3.5-5.0); Alkaline Phosphatase 55 U/L (39-117); Anion Gap 15 (12-20); Aspartate Amino Transferase 21 U/L (5-31); Bilirubin Total 0.3 mg/dL (0.0-1.0); Blood Urea Nitrogen 13 mg/dL (9-16); Calcium 10.2 mg/dL (8.4-10.2); Carbon Dioxide 22 mmol/L (22-29); Chloride 106 mmol/L (96-108); Creatinine Clr Calc Pharmacy 102.9; Estimated Glomerular Filt Rate > 60; Glucose Random 95 mg/dL (60-115); Potassium 4.1 mmol/L (3.3-5.1); Sodium 139 mmol/L (135-145)
--- NOTE | 2023-01-06 07:33 | ED.GENADULT ---
HPI - General Adult General Chief complaint: Abdominal Pain Stated complaint: side pain Time Seen by Provider: 01/06/23 07:29 Source: patient Mode of arrival: ambulatory Limitations: no limitations History of Present Illness HPI narrative: 22 year old female with pmhx of IBS, fatty liver disease, scoliosis, and asthma presents to the ED with RLQ abdominal pain x5 hours. She reports sudden onset right lower quadrant pain occuring while at work at 0300 this morning, worsening around 0430, prompting her to leave work due to the pain. Reports pain radiation from her right lower quadrant to her right flank. Rates pain a 7/10 currently and 10/10 at it's worst. Pain is worse with positional changes and movement. Endorses chills, nausea without vomiting, and diarrhea. Reports LMP 2 weeks ago. Denies chance of . Denies history of ovarian cysts. Denies history of renal stones. No previous abdominal surgeries. Denies anorexia, fever, chills, nausea, flank pain, dysuria, hematuria, vaginal discharge. Related Data Previous Rx's Medication Instructions Recorded oazqxfve-ikaylpmqs-zdrbocnhe 3.5 4 drp otic (ear) left TID 10 days 01/03/21 mg-10,000 unit/mL-1 % ear #10 mL drops,susp ciprofloxacin HCl 250 mg tablet 250 mg PO Q12H 3 days #6 tabs 02/23/21 cefuroxime axetil 250 mg tablet 250 mg PO BID 7 days #14 tabs 08/17/22 diphenhydramine HCl 25 mg capsule 50 mg (2 x 25 mg) PO TID PRN 08/17/22 (Benadryl) allergic reaction #30 caps ondansetron 4 mg disintegrating 4 mg PO DAILY PRN nausea and 01/06/23 tablet vomiting 5 days #10 tabs tamsulosin 0.4 mg capsule (Flomax) 0.4 mg PO BEDTIME 14 days #14 caps 01/06/23 Allergies Allergy/AdvReac Type Severity Reaction Status Date / Time sulfamethoxazole AdvReac Intermediate Difficulty Verified 08/17/22 19:30 [From Bactrim] Breathing trimethoprim [From Bactrim] AdvReac Intermediate Difficulty Verified 08/17/22 19:30 Breathing Review of Systems Review of Systems: Constitutional: No fever, chills, fatigue, night sweats, weight changes ENT/Mouth: No ear pain, hearing loss, nasal congestion, sinus pain, rhinorrhea, sore throat Eyes: No eye pain, swelling, redness, vision changes, discharge Cardio: No chest pain, palpitations, VAZQUEZ, orthopnea, peripheral edema Pulm: No SOB, cough, sputum, wheezing, dyspnea, hemoptysis GI: No nausea, vomiting, hematemesis, + abdominal pain, No diarrhea, constipation, hematochezia, melena : No irregular bleeding, dysuria, frequency, urgency, hesitancy, hematuria, + flank pain, No urinary flow changes, urinary incontinence or retention MSK: No back pain, neck pain, joint pain, myalgias Skin: No lesions, rashes Neuro: No weakness, numbness, paresthesias, LOC, dizziness, headache All other systems reviewed and are negative. [facility]LY [facility] Past Medical History Attestation statement: The following information was validated with the patient. Source: old records reviewed and nursing notes reviewed Medical History (Updated 01/06/23 @ 12:09 by GABRIELLE Lira) Scoliosis Fatty liver IBS (irritable bowel syndrome) Asthma Social History Social History Alcohol intake: unknown Patient Tobacco Use Status: Never used Tobacco Smoked in Last 30 Days: No Use of substances other than those prescribed or required for medical reasons: No Advance Directives: No Advance Directives Information Provided: No Patient : No Physical Exam ED Vital Signs: Vital Signs - 24 hr 01/06/23 05:34 01/06/23 08:00 01/06/23 10:36 Temperature 98.9 F Pulse Rate 101 H 93 82 Respiratory Rate 16 18 20 Blood Pressure 139/74 127/77 104/66 Pulse Oximetry 98 100 99 Oxygen Delivery Method Room Air Room Air Room Air BMI result Body Mass Index 33.7 Vital signs stable, afebrile. Const General: cooperative, healthy appearing, comfortable, no acute distress, alert and awake Orientation/consciousness: patient oriented x3 Limitations: no limitations HENMT Head: Yes normal to inspection Ears: hearing grossly normal bilaterally General nose exam: Normal external nose present Mouth: moist mucous membranes Eyes General: appearance normal, both eyes and all related structures Conjunctivae: conjunctivae normal Sclerae: sclerae normal Corneas: corneas normal Pupils: Equal, round and reactive pupils present EOM: EOMs intact bilaterally Neck Neck: Yes normal visual inspection, Yes no lymphadenopathy and Yes no meningeal signs Chest Chest palpation & inspection: normal inspection of the chest Resp Effort & Inspection: normal respiratory effort Auscultation: clear to auscultation bilaterally Cardio Rate: regular rate Rhythm: regular rhythm Heart sounds: S1 normal heart sound present and S2 normal heart sound present Peripheral pulses: Peripheral pulses 2+ throughout GI Other: Abdomen soft, nondistended + tenderness to palpation of the right lower quadrant, no rebound or guarding. Normoactive bowel sounds throughout. Inspection: Yes normal to inspection and No abdominal wall ecchymosis Other: + right CVAT Back/Spine/Pelvis Other: No midline spinous tenderness. No paraspinal muscle tenderness to palpation. No deformity or step-off. Skin General skin exam: no rashes or lesions noted Neuro General: patient oriented x3, gait normal, moves all extremities and no meningeal signs Cranial nerves: Yes CN's II-XII intact bilaterally and Yes Equal, round and reactive pupils present Extrem General: Yes normal to inspection and Yes full ROM Course Course Course Narrative: 0900-- CBC with leukocytosis to 13.6 without left shift. No anemia. Chemistry without acute electrolyte abnormalities requiring intervention. Lipase WNL. COVID and flu negative. > discussed this case with my attending, Dr. Lovelace, who also evaluated the patient. 1220-- urine with moderate amount of blood and RBC, no infection. Likely secondary to renal stone. Urine negative. CT abdomen and pelvis showing right UVJ stone measuring 3 x 2 mm without dilation of the ureter or hydronephrosis. The patient white blood cells are mildly elevated however patient is afebrile, normotensive and not tachycardic > I do not suspect infection. > on re-evaluation patient states that her pain has improved. I discussed unremarkable lab results along with CT findings. As this stone is less than 5 mm, it should pass on its own. I will send patient home with Flomax and Zofran and advised the patient to take ibuprofen to help with pain discomfort. Educated patient on the importance of staying hydrated throughout the day and not drinking large amounts of soda or tea. Advised patient to follow-up with her primary care provider this week. Discussed return precautions. All questions answered at this time. Patient agreeable with disposition. Stable for discharge. Medications Administered Discontinued Medications Generic Name Dose Route Start Last Admin Trade Name Rebecca PRN Reason Stop Dose Admin Ketorolac Tromethamine 30 mg 01/06/23 08:00 01/06/23 08:14 Ketorolac Tromethamine 30 Mg/Ml Vial IVPUSH 01/06/23 08:01 30 mg ONCE ONE Administration Ondansetron HCl 4 mg 01/06/23 08:00 01/06/23 08:14 Ondansetron Hcl 4 Mg/2 Ml Vial IVPUSH 01/06/23 08:01 4 mg ONCE ONE Administration Medical Decision Making Medical Decision Making [facility] Narrative: 22 year old female with no significant pmhx presents to the ED with RLQ abdominal pain x5 hours. Patient is afebrile, not tachycardic. Physical exam significant for a lower quadrant tender to palpation, no rebound tenderness or guarding. Normoactive bowel sounds throughout. + Right CVAT. Clinical concern for nephrolithasis vs renal colic vs hydronephrosis vs ovarian cyst vs UTI. Lower suspicion for ovarian torsion vs IUP, vs ectopic . Lower suspicion for appendicitis, cholecystitis, acute abdomen. Plan at this time is to obtain basic labs, CT abdomen/pelvis, pain control. Differential Diagnosis Differential Diagnoses: The differential diagnosis associated with the presentation includes As above. Admission/Observation Not indicated. Lab Data [facility] Lab Attestation statement: I reviewed the patient's lab results. As above. 01/06/23 05:55 01/06/23 05:55 Labs: Lab Results 01/06/23 01/06/23 01/06/23 Range/Units 05:55 07:55 10:40 WBC 13.6 H (4.8-10.8) X10*3/uL RBC 4.67 (4.20-5.50) X10*6/uL Hgb 12.5 (12.0-16.0) g/dl Hct 39.5 (37.0-47.0) % MCV 84.6 (80.0-98.0) fL MCH 26.8 L (27.0-33.0) pg MCHC 31.6 (31.0-35.0) g/dl RDW 12.9 (11.0-16.0) % Plt Count 281 (160-400) X10*3/uL MPV 9.5 (9.4-12.3) fL Immature Gran % (Auto) 0.4 (0.0-0.4) % Neut % (Auto) 68.1 (45-73) % Lymph % (Auto) 21.9 (20-40) % [place] % (Auto) 7.2 (2-11) % Eos % (Auto) 1.8 (0-4) % Baso % (Auto) 0.6 (0-2) % Lymph # (Auto) 3.0 (1.2-4.9) X10*3/uL [place] # (Auto) 1.0 (0.1-1.2) X10*3/uL Eos # (Auto) 0.3 (0.0-0.4) X10*3/uL Baso # (Auto) 0.1 (0.0-0.2) X10*3/uL Abs Immat Gran (auto) 0.06 H (0.00-0.03) X10*3/uL Absolute Neuts (auto) 9.3 H (2.0-8.3) x10*3/uL Absolute Nucleated RBC 0.000 (0.0-0.012) X10*3/uL Nucleated RBC % (auto) 0.0 (0.0-0.2) /100WBC Sodium 139 (135-145) mmol/L Potassium 4.1 (3.3-5.1) mmol/L Chloride 106 (96-108) mmol/L Carbon Dioxide 22 (22-29) mmol/L Anion Gap 15 (12-20) BUN 13 (9-16) mg/dL Creatinine 0.90 (0.5-1.4) mg/dL Estim Creat Clear Calc 102.9 Estimated GFR > 60 Random Glucose 95 (60-115) mg/dL Calcium 10.2 D (8.4-10.2) mg/dL Magnesium 2.2 (1.6-2.6) mg/dL Total Bilirubin 0.3 (0.0-1.0) mg/dL AST 21 (5-31) U/L ALT 39 H (0-31) U/L Alkaline Phosphatase 55 (39-117) U/L Troponin I High Sens < 2.7 (<3.5-17.0) ng/L Total Protein 8.0 (6.5-8.0) g/dL Albumin 4.6 (3.5-5.0) g/dL Lipase 12 (8-78) U/L Urine Color Yellow Urine Appearance Clear Urine pH 5.5 (5.0-9.0) Ur Specific [place] 1.020 (1.005-1.025) Urine Protein Negative (Neg-Trace) mg/dL Urine Glucose (UA) Negative (Negative) mg/dL Urine Ketones Negative (Negative) mg/dL Urine Blood Moderate (2+) H (Negative) Urine Nitrite Negative (Negative) Ur Leukocyte Esterase Negative (Negative) Urine RBC 3-5 H (0-2) /HPF Urine WBC 0-5 (0-5) /HPF Ur Squamous Epith Cells 0-2 (0-2) /HPF Urine Bacteria None Seen (None Seen) Hyaline Casts 0-2 (0-2) /LPF Urine Test NEGATIVE (NEGATIVE) Urine Opiates Screen Not Detected (Not Detect) Urine Fentanyl Screen Not Detected (Not Detect) Ur Barbiturates Screen Not Detected (Not Detect) Ur Phencyclidine Scrn Not Detected (Not Detect) Ur Amphetamines Screen Not Detected (Not Detect) U Benzodiazepines Scrn Not Detected (Not Detect) Urine Cocaine Screen Not Detected (Not Detect) U Marijuana (THC) Screen Not Detected (Not Detect) COVID-19 (MIGUEL) Negative (Negative) COVID-19 Clin Com See Note Influenza Type A (KIRK) Negative (Negative) Influenza Type B (KIRK) Negative (Negative) Influenza A & B Note See Note Independent Interpretation I performed an independent interpretation of an: CT Scan Interpretation: CT scan abdomen and pelvis show a calculi at the right UVJ, agree with radiologist's interpretation. Radiology Impression Discussion of test interpretation with radiology: I have reviewed the radiologist's reading. Radiologist Impression: CT abdomen pelvis wo IV con IMPRESSION: 1. Right ureterovesical junction 3 x 2 mm calculus. The right ureter is not dilated. There is no hydronephrosis. This might reflect a recently passed or incompletely obstructing right UVJ calculus. 2. Follicles in both ovaries, for which no specific imaging follow-up is recommended. Fleischner guidelines were followed. Independent Historian Clinical information obtained from an independent historian. History obtained from or confirmed by: Parent External Record Review External record reviewed: Inpatient record Prescription Management I considered prescription management with: Pain Medication and Other (flomax, antiemetic) Critical Care Time Critical Care Time Critical Care Time: No Discharge Plan Discharge Clinical Impression: Calculus of ureterovesical junction (UVJ) Patient Disposition: Home, Self-Care Instructions: Kidney Stones (ED) Additional Instructions: Your urine was negative for infection. Your labs were normal. The CT of your abdomen/pelvis showed a 3x2mm kidney stone in your right ureter. This is likely what is causing the lower abdomen/ back pain. Zofran is antinausea medication that is sent to pharmacy. Take this as needed. Flomax is a medication that will help flush out the kidney stone. This has been sent to your pharmacy. Take this as prescribed. You may also take ibuprofen as needed for discomfort. In addition, increase your oral hydration to prevent further kidney stones. Please follow-up with your primary care provider this week. If you do not have one, one has been provided to you. Please call and make an appointment. They will not call you. Return to the emergency department if your symptoms persist or worsen. In case of an emergency call 911. Prescriptions: New tamsulosin [Flomax] 0.4 mg capsule 0.4 mg PO BEDTIME 14 Days Qty: 14 0RF ondansetron 4 mg tablet,disintegrating 4 mg PO DAILY PRN (Reason: nausea and vomiting) 5 Days Qty: 10 0RF No Action uctakmao-ddfqownkn-FA 3.5-10,000-1 mg/mL-unit/mL-% drops,suspension 4 drp otic (ear) left TID 10 Days Qty: 10 0RF ciprofloxacin HCl 250 mg tablet 250 mg PO Q12H 3 Days Qty: 6 0RF cefuroxime axetil 250 mg tablet 250 mg PO BID 7 Days Qty: 14 0RF diphenhydramine HCl [Benadryl] 25 mg capsule 50 mg PO TID PRN (Reason: allergic reaction) Qty: 30 0RF Referrals: [facility] [Provider Group] [facility] [place] [facility] [place] [facility] [place]Provider Group] Stand Alone Forms: Work/School Release Interventions: ED Discharge Assessment Last Done: 01/06/23 13:04 Discharge Date/Time: 01/06/23 13:05
--- NOTE | 2023-01-06 07:53 | PC.NURSE ---
patient a&ox3, c/o RL abd pain, iv inserted/labs drawn, family at bedside, pt aware we need urine, call shaffer within reach, will continue to monitor
[2023-01-06 08:00] VITALS: BP 127/77; PULSE 93; RESP 18; O2SAT 100
[2023-01-06 10:36] VITALS: BP 104/66; PULSE 82; RESP 20; O2SAT 99
--- NOTE | 2023-01-06 11:36 | PC.NURSE ---
patient a&ox3, vss, pt c/o 05/10 pain, ct obtained, pt awaiting results, call shaffer within reach, will continue to monitor
== END 2023-01-06 13:05 | disposition home or self-care (01) ==
PROVIDERS: Emergency Provider Emergency Medicine
DX: N20.1 Calculus of ureter (principal); R10.31 Right lower quadrant pain; R11.0 Nausea; Z11.52 Encounter for screening for COVID-19; Z20.822 Contact with and (suspected) exposure to COVID-19; Z79.899 Other long term (current) drug therapy
CPT/HCPCS: 36415; 74176; 80053; 80307; 81001; 81025; 83690; 83735; 84484; 85025; 87502; 87635; 96374; 96375; 99284; J1885; J2405

== ENCOUNTER 2023-10-17 02:04 | Emergency (ER) | payer OTHER, SELFPAY ==
[2023-10-17 03:12] VITALS: BP 137/64; PULSE 80; RESP 16; O2SAT 99
[2023-10-17 04:04] LABS: Appearance Urine Cloudy; Color Urine Dark Yellow; Glucose Urine UA Negative (Negative); Leukocyte Esterase Urine Trace (Negative); Nitrite Urine Positive (Negative); PH 5.5 (5.0-9.0); Specific Gravity - Urine >= 1.030 (1.005-1.025); UMIC TRIGGER UACC YES; UPreg QC Valid YES; Urine Blood Negative (Negative); Urine Ketones Trace mg/dL (Negative); Urine Pregnancy NEGATIVE (NEGATIVE); Urine Protein Negative (Neg-Trace)
[2023-10-17 04:08] LABS: Bacteria Urine Trace (None Seen); Hyaline Casts Urine 0-2 /LPF (0-2); RBC Urine 0-2 /HPF (0-2); UACC Culture Trigger YES
--- NOTE | 2023-10-17 04:13 | ED.FEMALEGU ---
HPI - Female Genitourinary General Chief complaint: Urogenital-Female Stated complaint: UTI Time Seen by Provider: 10/17/23 03:31 Source: patient Mode of arrival: ambulatory Limitations: no limitations History of Present Illness ED Provider: polina DIMAS Narrative: Patient complaining of burning sensation when she urinates with frequency and dysuria no flank pain no nausea no vomiting Related Data Previous Rx's ?Medication ?Instructions ?Recorded ulsixcnc-disxyaaao-phorrbepj 3.5 4 drp otic (ear) left TID 10 days 01/03/21 mg-10,000 unit/mL-1 % ear #10 mL drops,susp ciprofloxacin HCl 250 mg tablet 250 mg PO Q12H 3 days #6 tabs 02/23/21 cefuroxime axetil 250 mg tablet 250 mg PO BID 7 days #14 tabs 08/17/22 diphenhydramine HCl 25 mg capsule 50 mg (2 x 25 mg) PO TID PRN 08/17/22 (Benadryl) allergic reaction #30 caps ondansetron 4 mg disintegrating 4 mg PO DAILY PRN nausea and 01/06/23 tablet vomiting 5 days #10 tabs tamsulosin 0.4 mg capsule (Flomax) 0.4 mg PO BEDTIME 14 days #14 caps 01/06/23 tamsulosin 0.4 mg capsule (Flomax) 0.4 mg PO DAILY 3 months #90 caps 01/07/23 cefuroxime axetil 250 mg tablet 250 mg PO BID 7 days #14 tabs 10/17/23 phenazopyridine 200 mg tablet 200 mg PO TID 2 days #6 tabs 10/17/23 (Pyridium) Allergies Allergy/AdvReac Type Severity Reaction Status Date / Time sulfamethoxazole AdvReac Intermediate Difficulty Verified 10/17/23 03:15 [From Bactrim] Breathing trimethoprim [From Bactrim] AdvReac Intermediate Difficulty Verified 10/17/23 03:15 Breathing Review of Systems Review of Systems: Yes all other systems are reviewed and are negative [facility] Past Medical History Medical History Scoliosis Fatty liver IBS (irritable bowel syndrome) Asthma Social History Social History Alcohol intake: unknown Patient Tobacco Use Status: Never used Tobacco Advance Directives: No Advance Directives Information Provided: Yes Do you have a plan to hurt others: No Plan Physical Exam Vital Signs: Vital Signs: Last Vital Signs Temp 98.5 F 10/17/23 05:20 Pulse 72 10/17/23 05:20 Resp 16 10/17/23 05:20 BP 96/52 L 10/17/23 05:20 Pulse Ox 97 10/17/23 05:20 O2 Del Method Room Air 10/17/23 05:20 BMI result Body Mass Index 0.3 Appearance: Alert. Oriented X3. No acute distress. ENT: Pharynx normal. Oral Mucosa moist Neck: Normal inspection. Neck supple. CVS: Normal heart rate and rhythm. Pulses normal. Respiratory: No respiratory distress. Equal air entry bilateral, Abdomen: Soft and nontender. Bowel sounds are present, no mass palpable, no CVA tenderness Skin: Skin warm and dry. Normal skin color. Normal skin turgor. Extremities: No lower extremity edema. No calf tenderness Neuro: Oriented X 3. Medications Administered Discontinued Medications Generic Name Dose Route Start Last Admin Trade Name Freq PRN Reason Stop Dose Admin Cefuroxime Axetil 250 mg 10/17/23 04:13 10/17/23 05:15 Cefuroxime Axetil 250 Mg Tablet PO 10/17/23 04:14 250 mg ONCE ONE Administration Phenazopyridine HCl 200 mg 10/17/23 04:13 10/17/23 05:15 Phenazopyridine Hcl 200 Mg Tablet PO 10/17/23 04:14 200 mg ONCE ONE Administration Medical Decision Making Lab Data [facility] Lab Attestation statement: I reviewed the patient's lab results. Labs: Lab Results 10/17/23 Range/Units 03:53 Urine Color Dark Yellow Urine Appearance Cloudy Urine pH 5.5 (5.0-9.0) Ur Specific [place] >= 1.030 H (1.005-1.025) Urine Protein Negative (Neg-Trace) mg/dL Urine Glucose (UA) Negative (Negative) mg/dL Urine Ketones Trace (Negative) mg/dL Urine Blood Negative (Negative) Urine Nitrite Positive H (Negative) Ur Leukocyte Esterase Trace H (Negative) Urine RBC 0-2 (0-2) /HPF Urine WBC 6-10 H (0-5) /HPF Ur Squamous Epith Cells 11-20 (0-2) /HPF Urine Bacteria Trace (None Seen) Hyaline Casts 0-2 (0-2) /LPF Urine Test NEGATIVE (NEGATIVE) Discharge Plan Discharge Clinical Impression: Urinary tract infection Patient Disposition: Home, Self-Care Instructions: Urinary Tract Infection in Women (DC) Additional Instructions: drink plenty of fluids take antibiotics as adv Prescriptions: New cefuroxime axetil 250 mg tablet 250 mg PO BID 7 Days Qty: 14 0RF phenazopyridine [Pyridium] 200 mg tablet 200 mg PO TID 2 Days Qty: 6 0RF No Action gjxbgqpm-emcopqbqa-QQ 3.5-10,000-1 mg/mL-unit/mL-% drops,suspension 4 drp otic (ear) left TID 10 Days Qty: 10 0RF ciprofloxacin HCl 250 mg tablet 250 mg PO Q12H 3 Days Qty: 6 0RF tamsulosin [Flomax] 0.4 mg capsule 0.4 mg PO BEDTIME 14 Days Qty: 14 0RF ondansetron 4 mg tablet,disintegrating 4 mg PO DAILY PRN (Reason: nausea and vomiting) 5 Days Qty: 10 0RF tamsulosin [Flomax] 0.4 mg capsule 0.4 mg PO DAILY 90 Days Qty: 90 0RF cefuroxime axetil 250 mg tablet 250 mg PO BID 7 Days Qty: 14 0RF diphenhydramine HCl [Benadryl] 25 mg capsule 50 mg PO TID PRN (Reason: allergic reaction) Qty: 30 0RF Stand Alone Forms: Work/School Release Interventions: ED Discharge Assessment Last Done: 10/17/23 05:20 Discharge Date/Time: 10/17/23 05:20 Print Language: [place]
[2023-10-17] MEDS: Phenazopyridine HCL 200 MG TABLET PO (05:15)
[2023-10-17] MEDS: cefuroxime axetiL 250 MG TABLET PO (05:15)
[2023-10-17 05:19] VITALS: BP 96/52; PULSE 72; RESP 16; TEMP 36.9; O2SAT 97
[2023-10-17 05:20] VITALS: BP 96/52; PULSE 72; RESP 16; TEMP 36.9; O2SAT 97
== END 2023-10-17 05:20 | disposition home or self-care (01) ==
PROVIDERS: Emergency Provider Internal Medicine
DX: N39.0 Urinary tract infection, site not specified (principal)
CPT/HCPCS: 81001; 81003; 81025; 87086; 87147; 99283; 99284

== ENCOUNTER 2023-11-11 15:21 | Emergency (ER) | payer OTHER, SELFPAY ==
[2023-11-11 15:35] VITALS: BP 100/73; PULSE 77; RESP 18; TEMP 36.6; O2SAT 99; BMI 35.5
--- NOTE | 2023-11-11 15:36 | ED_ITS ---
HPI - Extremity Problem General Chief complaint: General Medical Stated complaint: ingrown toenail Time Seen by Provider: 11/11/23 18:38 Source: patient, RN notes reviewed and old records reviewed Mode of arrival: ambulatory Limitations: no limitations History of Present Illness ED Provider: Jennifer DIMAS Narrative: 23-year-old female presents for evaluation of right great toe pain. Patient reports that she 1st noticed pain yesterday while she was walking at work. She states that she noticed an ingrown toenail so she clip the corners of the toenail last night. She states that she has had continued pain today and noticed some drainage from the right great toe She reports 6/10 pain worse with walking. Denies any fevers, chills The pain does not radiate up into her foot Related Data Previous Rx's ?Medication ?Instructions ?Recorded bgpsetbf-elqswxtqp-jzddjxunr 3.5 4 drp otic (ear) left TID 10 days 01/03/21 mg-10,000 unit/mL-1 % ear #10 mL drops,susp ciprofloxacin HCl 250 mg tablet 250 mg PO Q12H 3 days #6 tabs 02/23/21 cefuroxime axetil 250 mg tablet 250 mg PO BID 7 days #14 tabs 08/17/22 diphenhydramine HCl 25 mg capsule 50 mg (2 x 25 mg) PO TID PRN 08/17/22 (Benadryl) allergic reaction #30 caps ondansetron 4 mg disintegrating 4 mg PO DAILY PRN nausea and 01/06/23 tablet vomiting 5 days #10 tabs tamsulosin 0.4 mg capsule (Flomax) 0.4 mg PO BEDTIME 14 days #14 caps 01/06/23 tamsulosin 0.4 mg capsule (Flomax) 0.4 mg PO DAILY 3 months #90 caps 01/07/23 cefuroxime axetil 250 mg tablet 250 mg PO BID 7 days #14 tabs 10/17/23 phenazopyridine 200 mg tablet 200 mg PO TID 2 days #6 tabs 10/17/23 (Pyridium) cephalexin 500 mg tablet 500 mg PO QID #28 tabs 11/11/23 Allergies Allergy/AdvReac Type Severity Reaction Status Date / Time sulfamethoxazole AdvReac Intermediate Difficulty Verified 11/11/23 15:36 [From Bactrim] Breathing trimethoprim [From Bactrim] AdvReac Intermediate Difficulty Verified 11/11/23 15:36 Breathing Review of Systems Constitutional: Constitutional: Denies body ache(s), Denies chills and Denies fever(s) Musculoskeletal: Musculoskeletal: Reports arthralgias Integumentary/Breasts: Skin/Breast: Reports erythema and Reports skin pain PMFSH Past Medical History Medical History Scoliosis Fatty liver IBS (irritable bowel syndrome) Asthma Social History Social History Alcohol intake: unknown Patient Tobacco Use Status: Never used Tobacco Advance Directives: No Advance Directives Information Provided: No Do you have a plan to hurt others: No Plan Physical Exam Vital Signs: Vital Signs: Last Vital Signs Temp 97.8 F 11/11/23 15:35 Pulse 77 11/11/23 15:35 Resp 18 11/11/23 15:35 BP 100/73 11/11/23 15:35 Pulse Ox 99 11/11/23 15:35 O2 Del Method Room Air 11/11/23 15:35 BMI result Body Mass Index 35.5 Const: General: healthy appearing, comfortable, no acute distress, alert and awake Nutritional Appearance: well nourished Orientation/consciousness: patient oriented x3 HEENT: Head: Yes normocephalic and Yes atraumatic Eyes: Eyelids: Yes eyelids normal Conjunctivae: conjunctivae normal Sclerae: sclerae normal Corneas: corneas normal Pupils: Equal, round and reactive pupils present EOM: EOMs intact bilaterally Skin: Other: Patient has some mild erythema to the lateral aspect of the right great toenail. There is minimal drainage from the skin fold where the lateral aspect of the nail meets the skin. The patient resected the corner of the toenail that is abutting the skin. There was no obvious retained ingrown portion of the nail. There is no erythema extending up the right foot General skin exam: elasticity normal Neuro: General: patient oriented x3 Cranial nerves: Yes Equal, round and reactive pupils present and Yes Bilaterally intact EOM present Cognition (Neuro): normal cognition Course Course Course Narrative: This is a Rapid Medical Examination (RME) performed by A. Renschler PA-C in triage. Full HPI, ROS, assessment and treatment plan per primary provider in the Main ED. 23 yo female presents Plan: Medications Administered Discontinued Medications Generic Name Dose Route Start Last Admin Trade Name Rebecca PRN Reason Stop Dose Admin Cephalexin HCl 500 mg 11/11/23 18:45 11/11/23 18:51 Cephalexin 500 Mg Capsule PO 11/11/23 18:46 500 mg ONCE ONE Administration Medical Decision Making Medical Decision Making MDM Narrative: Patient appears to have a mild paronychia/cellulitis of the right great toe after an ingrown toenail. She already resected the portion of the ingrown toenail. Will discharge the patient with a short course of cephalexin to treat the cellulitis/paronychia. There is no obvious abscess Differential Diagnosis Differential Diagnoses: The differential diagnosis associated with the presentation includes Ingrown toenail Paronychia Cellulitis Abscess Discharge Plan Discharge Clinical Impression: Cellulitis of great toe, right Patient Disposition: Home, Self-Care Instructions: Ingrown Nail (ED) Additional Instructions: I recommend that you soak your toe in Epsom salt baths for 5-10 minutes 4 times per day You may continue to use topical antibiotic Take cephalexin 4 times daily for the next week to treat this skin infection adjacent to where the ingrown toenail was Follow-up with your primary doctor, return for new or worsening symptoms Prescriptions: New cephalexin 500 mg tablet 500 mg PO QID Qty: 28 0RF No Action [id number]-anavsptzw-YV 3.5-10,000-1 mg/mL-unit/mL-% drops,suspension 4 drp otic (ear) left TID 10 Days Qty: 10 0RF ciprofloxacin HCl 250 mg tablet 250 mg PO Q12H 3 Days Qty: 6 0RF tamsulosin [Flomax] 0.4 mg capsule 0.4 mg PO BEDTIME 14 Days Qty: 14 0RF ondansetron 4 mg tablet,disintegrating 4 mg PO DAILY PRN (Reason: nausea and vomiting) 5 Days Qty: 10 0RF tamsulosin [Flomax] 0.4 mg capsule 0.4 mg PO DAILY 90 Days Qty: 90 0RF cefuroxime axetil 250 mg tablet 250 mg PO BID 7 Days Qty: 14 0RF phenazopyridine [Pyridium] 200 mg tablet 200 mg PO TID 2 Days Qty: 6 0RF cefuroxime axetil 250 mg tablet 250 mg PO BID 7 Days Qty: 14 0RF diphenhydramine HCl [Benadryl] 25 mg capsule 50 mg PO TID PRN (Reason: allergic reaction) Qty: 30 0RF Stand Alone Forms: Work/School Release Print Language: Montenegrin
[2023-11-11] MEDS: cephALEXin 500 MG CAPSULE PO (18:51)
[2023-11-11 19:02] VITALS: BP 100/73; PULSE 77; RESP 18; TEMP 36.6; O2SAT 99
== END 2023-11-11 19:02 | disposition home or self-care (01) ==
PROVIDERS: Emergency Provider Emergency Medicine
DX: L03.031 Cellulitis of right toe (principal); M79.674 Pain in right toe(s)
CPT/HCPCS: 99282; 99283

== ENCOUNTER 2024-02-10 15:11 | Emergency (ER) | payer SELFPAY ==
[2024-02-10 15:39] VITALS: BP 135/89; PULSE 70; RESP 18; TEMP 36.3; O2SAT 99; BMI 37.5
--- NOTE | 2024-02-10 15:46 | ED_ITS ---
HPI - General Adult General Chief complaint: General Medical Stated complaint: ?Toe infection Time Seen by Provider: 02/10/24 22:47 History of Present Illness ED Provider: Ketty DIMAS narrative: The patient is a 23-year-old female who has had problems with an ingrown toe of her right great toe for several months. She has been on antibiotics a few times but she has never had any procedure done. She has been unable to see a hospice spiritual care coordinator. She feels that there is tissue over growing the lateral aspect of the nail where the toe was growing into the the paronychial skin. Related Data Previous Rx's ?Medication ?Instructions ?Recorded [id number]-zqpxcdhhb-glwyuephc 3.5 4 drp otic (ear) left TID 10 days 01/03/21 mg-10,000 unit/mL-1 % ear #10 mL drops,susp ciprofloxacin HCl 250 mg tablet 250 mg PO Q12H 3 days #6 tabs 02/23/21 cefuroxime axetil 250 mg tablet 250 mg PO BID 7 days #14 tabs 08/17/22 diphenhydramine HCl 25 mg capsule 50 mg (2 x 25 mg) PO TID PRN 08/17/22 (Benadryl) allergic reaction #30 caps ondansetron 4 mg disintegrating 4 mg PO DAILY PRN nausea and 01/06/23 tablet vomiting 5 days #10 tabs tamsulosin 0.4 mg capsule (Flomax) 0.4 mg PO BEDTIME 14 days #14 caps 01/06/23 tamsulosin 0.4 mg capsule (Flomax) 0.4 mg PO DAILY 3 months #90 caps 01/07/23 cefuroxime axetil 250 mg tablet 250 mg PO BID 7 days #14 tabs 10/17/23 phenazopyridine 200 mg tablet 200 mg PO TID 2 days #6 tabs 10/17/23 (Pyridium) cephalexin 500 mg tablet 500 mg PO QID #28 tabs 11/11/23 cephalexin 500 mg capsule 500 mg PO TID 4 days #12 caps 02/10/24 Allergies Allergy/AdvReac Type Severity Reaction Status Date / Time sulfamethoxazole AdvReac Intermediate Difficulty Verified 02/10/24 15:41 [From Bactrim] Breathing trimethoprim [From Bactrim] AdvReac Intermediate Difficulty Verified 02/10/24 15:41 Breathing Review of Systems 2 Review of Systems: Yes all other systems are reviewed and are negative [facility] Past Medical History Medical History Scoliosis Fatty liver IBS (irritable bowel syndrome) Asthma Social History Social History Alcohol intake: unknown Patient Tobacco Use Status: Never used Tobacco Advance Directives: No Advance Directives Information Provided: No Do you have a plan to hurt others: No Plan Physical Exam ED Vital Signs: Vital Signs - 24 hr 02/10/24 21:14 02/11/24 00:17 Temperature 98.4 F 98.4 F Pulse Rate 81 81 Respiratory Rate 16 16 Blood Pressure 139/85 139/85 Pulse Oximetry 99 99 Oxygen Delivery Method Room Air Room Air BMI result Body Mass Index 37.5 Const Other: The patient is a 23-year-old woman who was awake and alert, pleasant and cooperative. She does not appear acutely toxic or ill. [facility] Head: Yes normal to inspection Face and sinus: Yes normal facial exam Mouth: Normal oral and palatal mucosa present Eyes General: appearance normal, both eyes and all related structures Neck Neck: Yes full ROM Resp Effort & Inspection: normal respiratory effort Skin Other: The patient has what seems to be an ingrown toenail on the right great toe. The lateral aspect of the nail seems to be protruding into the paronychial skin and there seems to be some reactive hypertrophy of the paronychial skin lying over the nail. No gross erythema or pus. Neuro Other: The patient is awake, alert, appropriate. Grossly neurologically intact with normal motor and sensory function of the right great toe. Extrem Other: The patient has an ingrown toenail at the right great toe with the lateral aspect of the nail impinging on the paronychial skin with some associated reactive hypertrophy of the paronychial skin. She can use the toe normally with normal joint function. Course Course Course Narrative: This is a rapid medical exam performed by Bonnie Daigle NP: Additional HPI, ROS, PE not included below will be deferred to primary provider. Patient is a 23-year-old F presenting with complaint of right great toe pain, swelling and drainage. Has been treated for cellulitis of toe in the past. Denies fevers. Medications Administered Discontinued Medications Generic Name Dose Route Start Last Admin Trade Name Rebecca PRN Reason Stop Dose Admin Bacitracin 1 appl 02/10/24 23:58 02/11/24 00:12 Bacitracin Oint 0.9 Gm Packet TOPICAL 02/10/24 23:59 1 appl ONCE ONE Administration Protocol Cephalexin HCl 1,000 mg 02/10/24 23:55 02/11/24 00:12 Cephalexin 500 Mg Capsule PO 02/10/24 23:56 1,000 mg ONCE ONE Administration Lidocaine HCl 6 ml 02/10/24 22:55 02/11/24 00:13 Lidocaine Hcl 2 % 20 Ml Vial INFILTRATI 02/10/24 22:56 6 ml ONCE ONE Administration Procedures Procedure Narrative Procedure Narrative: Procedure: Partial removal of toenail to relieve ingrown toenail. Right great toe, lateral aspect. The procedure was explained to the patient who gave verbal consent for the procedure. The skin of the base of the toe was prepped with Betadine. A digital block was applied by injecting 2% plain lidocaine onto both sides of the right great toe using a 30 gauge needle. A total of 4 mL of 2% plain lidocaine was used. Once the digital block took effect I then prepped the remainder of the toe with Betadine. I then used scissors to undermine the lateral aspect of the toenail. The undermining was done to the base of the nail. I then used the scissors to cut away the undermined portion of the lateral portion of the nail until I was able to remove the lateral portion of the nail with a forceps. The patient tolerated the procedure well. There was no release of pus or other signs of abscess. The nail bed was intact. Bacitracin and a dressing were ordered. Medical Decision Making Medical Decision Making MDM Narrative: The patient is a 23-year-old female with a symptomatic ingrown toenail of the right great toe. This has been a problem that has been brewing for several months. I proposed removing the lateral portion of the nail to help relieve this problem. The patient consented. Digital block was applied. I undermined the lateral portion of the nail and then cut through the length of the nail to remove the lateral portion and relieve the impingement of the nail on the paronychial skin. Bacitracin and a dressing were applied. The patient was given a postop shoe. A short course of cephalexin was prescribed. The patient is advised to try to follow up with a hospice spiritual care coordinator. She also needs to get a primary care doctor. Discharge Plan Discharge Clinical Impression: Ingrown toenail of right foot Patient Disposition: Home, Self-Care Instructions: Ingrown Nail (ED), Nail Removal (ED), Warm Compress or Soak (ED) Additional Instructions: Please rest and take it easy for the next couple of days. Keep the left foot elevated. Apply bacitracin to the area 2 times a day and cover with Band-Aid. Take the antibiotics as prescribed. Please continue your efforts to get a primary care doctor and also continue your efforts to try to see hospice spiritual care coordinator. Return to the emergency room if significantly worse. Prescriptions: New cephalexin 500 mg capsule 500 mg PO TID 4 Days Qty: 12 0RF No Action [id number]-whadbjxcq-AX 3.5-10,000-1 mg/mL-unit/mL-% drops,suspension 4 drp otic (ear) left TID 10 Days Qty: 10 0RF ciprofloxacin HCl 250 mg tablet 250 mg PO Q12H 3 Days Qty: 6 0RF tamsulosin [Flomax] 0.4 mg capsule 0.4 mg PO BEDTIME 14 Days Qty: 14 0RF ondansetron 4 mg tablet,disintegrating 4 mg PO DAILY PRN (Reason: nausea and vomiting) 5 Days Qty: 10 0RF tamsulosin [Flomax] 0.4 mg capsule 0.4 mg PO DAILY 90 Days Qty: 90 0RF cefuroxime axetil 250 mg tablet 250 mg PO BID 7 Days Qty: 14 0RF phenazopyridine [Pyridium] 200 mg tablet 200 mg PO TID 2 Days Qty: 6 0RF cephalexin 500 mg tablet 500 mg PO QID Qty: 28 0RF cefuroxime axetil 250 mg tablet 250 mg PO BID 7 Days Qty: 14 0RF diphenhydramine HCl [Benadryl] 25 mg capsule 50 mg PO TID PRN (Reason: allergic reaction) Qty: 30 0RF Stand Alone Forms: Work/School Release Interventions: ED Discharge Assessment Last Done: 02/11/24 00:17 Discharge Date/Time: 02/11/24 00:27 Print Language: Colombian
[2024-02-10 21:14] VITALS: BP 139/85; PULSE 81; RESP 16; TEMP 36.9; O2SAT 99
[2024-02-11] MEDS: Bacitracin Oint 0.9 GM PACKET 1 APPL TOPICAL (00:12)
[2024-02-11] MEDS: cephALEXin 500 MG CAPSULE 1000 MG PO (00:12)
[2024-02-11] MEDS: Lidocaine HCl 2 % 20 ML VIAL 6 ML INFILTRATI (00:13)
[2024-02-11 00:17] VITALS: BP 139/85; PULSE 81; RESP 16; TEMP 36.9; O2SAT 99
== END 2024-02-11 00:27 | disposition home or self-care (01) ==
PROVIDERS: Emergency Provider Emergency Medicine
DX: L60.0 Ingrowing nail (principal)
CPT/HCPCS: 11750; 99284; J2003

== ENCOUNTER 2024-06-05 14:50 | Emergency (ER) | payer OTHER, SELFPAY ==
[2024-06-05 14:54] VITALS: BP 117/71; PULSE 98; RESP 16; TEMP 36.2; O2SAT 98; BMI 33.8
--- NOTE | 2024-06-05 15:01 | ED_ITS ---
HPI - General Adult General Chief complaint: General Medical Stated complaint: infected toe Time Seen by Provider: 06/05/24 16:06 Source: patient Mode of arrival: ambulatory Limitations: no limitations History of Present Illness ED Provider: Lesvia Burch NP HPI narrative: Patient is a 23-year-old female who presents to emergency department for evaluation of right great toe with ingrown toenail and concern for infection. She has been seen in the emergency department multiple times in the past requiring removal of ingrown toenail as well as drainage of the paronychia. She states it continues to reoccur in the same area. She unfortunately has yet to establish care with a primary care doctor nor a staffing director. She states that she called a couple of primary care offices but they were not accepting new patients. Over the past 5 days she has noticed again increasing pain, redness swelling and bloody drainage from the medial aspect of the toenail. She denies associated fevers. Related Data Previous Rx's ?Medication ?Instructions ?Recorded eqgftngv-itxuxejoe-axaehtugj 3.5 4 drp otic (ear) left TID 10 days 01/03/21 mg-10,000 unit/mL-1 % ear #10 mL drops,susp ciprofloxacin HCl 250 mg tablet 250 mg PO Q12H 3 days #6 tabs 02/23/21 cefuroxime axetil 250 mg tablet 250 mg PO BID 7 days #14 tabs 08/17/22 diphenhydramine HCl 25 mg capsule 50 mg (2 x 25 mg) PO TID PRN 08/17/22 (Benadryl) allergic reaction #30 caps ondansetron 4 mg disintegrating 4 mg PO DAILY PRN nausea and 01/06/23 tablet vomiting 5 days #10 tabs tamsulosin 0.4 mg capsule (Flomax) 0.4 mg PO BEDTIME 14 days #14 caps 01/06/23 tamsulosin 0.4 mg capsule (Flomax) 0.4 mg PO DAILY 3 months #90 caps 01/07/23 cefuroxime axetil 250 mg tablet 250 mg PO BID 7 days #14 tabs 10/17/23 phenazopyridine 200 mg tablet 200 mg PO TID 2 days #6 tabs 10/17/23 (Pyridium) cephalexin 500 mg tablet 500 mg PO QID #28 tabs 11/11/23 cephalexin 500 mg capsule 500 mg PO TID 4 days #12 caps 02/10/24 cephalexin 500 mg capsule 500 mg PO QID #27 caps 06/05/24 Allergies Allergy/AdvReac Type Severity Reaction Status Date / Time sulfamethoxazole AdvReac Intermediate Difficulty Verified 06/05/24 14:57 [From Bactrim] Breathing trimethoprim [From Bactrim] AdvReac Intermediate Difficulty Verified 06/05/24 14:57 Breathing Review of Systems Review of Systems: Yes all other systems are reviewed and are negative [facility] Past Medical History Attestation statement: The following information was validated with the patient. Source: old records reviewed Medical History Scoliosis Fatty liver IBS (irritable bowel syndrome) Asthma Social History Social History Alcohol intake: unknown Patient Tobacco Use Status: Never used Tobacco Advance Directives: No Advance Directives Information Provided: No Physical Exam ED Vital Signs: Vital Signs - 24 hr 06/05/24 14:54 06/05/24 16:19 Temperature 97.1 F 97.7 F Pulse Rate 98 87 Respiratory Rate 16 14 Blood Pressure 117/71 137/95 H Pulse Oximetry 98 98 Oxygen Delivery Method Room Air Room Air BMI result Body Mass Index 33.8 Appearance: Alert.?Oriented to person, place and time. No acute distress.?Normal affect.? CVS: Heart sounds normal. Normal heart rate and rhythm.? Pulses normal.?? Respiratory: No respiratory distress.? Lung sounds clear to auscultation bilaterally?? Skin: Skin warm and dry.? Normal skin color.? Extremities: No lower extremity edema.? The right great toe along the lateral abscess there is protruding paronychial skin overlying dried blood, small amount of fluctuance. Neuro: Moves all extremities spontaneously. Sensation intact bilaterally. Ambulates with normal steady gait. Course Course Course Narrative: This is a Rapid Medical Examination (RME) performed by Kaylen Redman PA-C in triage. Full HPI, ROS, assessment and treatment plan per primary provider in the Main ED. 23 yo female here for eval of right great toe pain/ infection. hx ingrown toe nail which had been removed. did not follow up w/ podiatry. admits to discharge/bleeding from the area. Plan: I&D Medications Administered Discontinued Medications Generic Name Dose Route Start Last Admin Trade Name Rebecca PRN Reason Stop Dose Admin Lidocaine HCl 5 ml 06/05/24 17:04 06/05/24 17:12 Lidocaine Hcl 1 % Mpf 5 Ml Vial SUBCUT 06/05/24 17:05 5 ml ONCE ONE Administration Procedures Abscess I/D Site: foot Side (if applicable): right Local Anesthetic: lidocaine 1% Amount of anesthesia used (mL): 4 Technique: needle aspiration Amount of fluid expressed (mL): 0.5 Nerve Block Nerve Block 1: Time out performed: Yes Local Anesthetic: lidocaine 1% Amount of anesthesia used (mL): 4 Side: right Nerve Blocks: digital ( right great toe) Medical Decision Making Medical Decision Making MDM Narrative: Patient is a 23-year-old female who presents to the emergency department with recurrent symptomatic ingrown toe/paronychia of the right great toe, this has been ongoing for many months, has had prior intervention October of 2023 and January of 2024. Most recently in January she had the lateral portion of the nail removed under digital block and she had symptomatic improvement for some time. However turned over the past 5 days. Unfortunately she has not yet been able to establish care with a primary care doctor nor a staffing director. On examination, there was dried blood over the paronychial skin, small area of fluctuance concerning for possible abscess. Patient is amenable to attempted incision and drainage, planning for digital block, see procedural portion of this note for further detail. Needle aspiration of paronychia with 0.5 mL purulent drainage. Provided with 1st dose of cephalexin in the emergency department, advised outpatient follow-up with Podiatry, she will contact her insurance to determine whether she needs a PCP referral to Podiatry or not. Reviewed return precautions Differential Diagnosis Differential Diagnoses: The differential diagnosis associated with the presentation includes ( Paronychia, ingrown toenail, cellulitis) Independent Historian Clinical information obtained from an independent historian. History obtained from or confirmed by: Parent External Record Review External record reviewed: Outpatient record Prescription Management I considered prescription management with: Antibiotic Discharge Plan Discharge Clinical Impression: Paronychia of great toe of right foot Patient Disposition: Home, Self-Care Instructions: Paronychia (ED) Additional Instructions: you received the 1st dose of antibiotic while in the emergency department, I sent remainder of a prescription to your pharmacy begin taking this tomorrow morning 4 times daily for 1 week. As discussed, given the persistent reoccurrence to the same area it is recommended that you follow-up with podiatry. You may contact your insurance company to determine whether you will require a referral to a staffing director or not, if you do not you may contact local podiatry office to establish care. In addition, it is advised that you continued to establish care with a primary care doctor for further follow-up as necessary. You may return with new or worsening symptoms or concerns. Prescriptions: New cephalexin 500 mg capsule 500 mg PO QID Qty: 27 0RF No Action [id number]-bkazytgwd-YV 3.5-10,000-1 mg/mL-unit/mL-% drops,suspension 4 drp otic (ear) left TID 10 Days Qty: 10 0RF ciprofloxacin HCl 250 mg tablet 250 mg PO Q12H 3 Days Qty: 6 0RF tamsulosin [Flomax] 0.4 mg capsule 0.4 mg PO BEDTIME 14 Days Qty: 14 0RF ondansetron 4 mg tablet,disintegrating 4 mg PO DAILY PRN (Reason: nausea and vomiting) 5 Days Qty: 10 0RF tamsulosin [Flomax] 0.4 mg capsule 0.4 mg PO DAILY 90 Days Qty: 90 0RF cefuroxime axetil 250 mg tablet 250 mg PO BID 7 Days Qty: 14 0RF phenazopyridine [Pyridium] 200 mg tablet 200 mg PO TID 2 Days Qty: 6 0RF cephalexin 500 mg tablet 500 mg PO QID Qty: 28 0RF cefuroxime axetil 250 mg tablet 250 mg PO BID 7 Days Qty: 14 0RF diphenhydramine HCl [Benadryl] 25 mg capsule 50 mg PO TID PRN (Reason: allergic reaction) Qty: 30 0RF cephalexin 500 mg capsule 500 mg PO TID 4 Days Qty: 12 0RF Referrals: [facility] [Provider Group] [facility] [Provider Group] [facility] [Provider Group] [facility] Primary Care,[place] [Provider Group] Print Language: Burundian
--- OUTSIDE RECORDS SUMMARY | 2024-06-05 16:13 | XMS_ITS | Encounter Summary ---
Author Organization [facility] Address [address] [place] [address] Care Team Providers Care Learning Coordinator Name Role Phone Tati Dao Primary Care Provider [phone] Reason for Visit * Reason Onset Date Comments TP Appt 11/19/2022 Encounter Details Date Type Department Care Team ([facility] st Contact Info) Description 11/19/2022 Telephone [facility] [address] [place] [address] Tati Dao FNP [address], [place] [phone] TP Appt Social History Tobacco Use Types Packs/Day Years Used Date Smoking Tobacco: Never Assessed Comments Unknown Sex and Gender Information Value Date Recorded Sex Assigned at Female 01/28/2022 10:17 AM EDT Legal Sex Female 10:17 AM EDT Gender Identity Female 01/28/2022 10:17 AM EDT Sexual Orientation Bisexual 01/28/2022 10 :17 AM EDT documented as of this encounter Miscellaneous Notes * Telephone Encounter - Jadon [place] - 11/19/2022 12:04 PM EDT Please advised pt is in need of a TP Appt, pt was last seen on 06/30/[address] Munoz. documented in this encounter Plan of Treatment Not on file documented as of this encounter Visit Diagnoses Not on filedocumented in this encounter Care Teams Learning Coordinator Relationship Specialty Start Date End Date Tati Dao FNP [address], [place] [phone] PCP - General Family Medicine 09/10/21 05/04/23 documented as of this encounter
[2024-06-05 16:19] VITALS: BP 137/95; PULSE 87; RESP 14; TEMP 36.5; O2SAT 98
[2024-06-05] MEDS: Lidocaine HCl 1 % MPF 5 ML VIAL SUBCUT (17:12)
[2024-06-05] MEDS: cephALEXin 500 MG CAPSULE PO (19:17)
[2024-06-05] MEDS: Bacitracin Oint 0.9 GM PACKET 1 APPL TOPICAL (19:17)
--- NOTE | 2024-06-05 19:22 | PC.NURSE ---
patient a&ox3, vss, pt currently denying pain, pt medicated per order, toe was dressed, pt to discharge home with family
[2024-06-05 19:23] VITALS: BP 128/88; PULSE 82; RESP 16; TEMP 36.2; O2SAT 98
== END 2024-06-05 19:25 | disposition home or self-care (01) ==
PROVIDERS: Emergency Provider Emergency Medicine Emergency Medical Services
DX: L03.031 Cellulitis of right toe (principal); L60.0 Ingrowing nail; M79.674 Pain in right toe(s)
CPT/HCPCS: 10160; 99283; 99284; J2003